=== PATIENT | male | born 1950 | race African-American/Black ===

== ENCOUNTER 2016-11-11 06:47 | Day surgery (SDC) | payer BC ==
[~2016-11-11 06:47] MED LIST: BUPIVACAINE HCL 0.75% INJ/PF (7.5 MG/1 ML) 10 ML SDV OS PRN; KETOROLAC TROMETHAMINE 0.45% 4 DROP/0.4 ML DROPERETTE OS PRN; LIDOCAINE 4% INJ/PF (40 MG/ML) 5 ML AMPUL OS PRN
[2016-11-11] MEDS: TETRACAINE HCL 0.5% OPH SOLN 0.6 ML DROPERETTE OS PRN ×2 (07:00→07:26)
[2016-11-11] MEDS: CYCLOPENTOLATE 0.2%/PHENYLEPHRINE 1% OPH SOLN 2 ML OS PRN ×3 (07:01→07:25)
[2016-11-11] MEDS: TROPICAMIDE 1% OPH SOLN 3 ML OS PRN ×3 (07:02→07:25)
[2016-11-11] MEDS: BESIFLOXACIN HCL 0.6% OPH SUSP 5 ML BOTTLE OS PRN ×3 (07:04→08:17)
[2016-11-11] MEDS ORDERED: CHONDR SU A NA/HYALUR INTRAOC KIT (SURGICARE) ONE (07:12)
[2016-11-11] MEDS ORDERED: PHENYLEPHRINE/KETOROLAC 1%-0.3% 4 ML VIAL ONE (07:12)
[2016-11-11] MEDS ORDERED: LIDOCAINE 1% INJ-PF (10 MG/ML) 30 ML SDV ONE (07:12)
[2016-11-11] MEDS ORDERED: FENTANYL CITRATE INJ/PF 100 MCG/2 ML AMPUL ONE (07:32)
[2016-11-11] MEDS ORDERED: MIDAZOLAM 2 MG/2 ML INJ ONE (07:32)
--- NOTE | 2016-11-11 08:38 | [facility] OPERATIVE REPORT E ---
[facility] Operative Report NAME: YVONNE FU AGE: 66Y DATE OF SURGERY: 11/11/2016 ROOM: PREOPERATIVE DIAGNOSIS: CATARACT, LEFT EYE. POSTOPERATIVE DIAGNOSIS: CATARACT, LEFT EYE. PROCEDURE PERFORMED: Phacoemulsification with posterior chamber, intraocular lens, left eye. SURGEON: BABAR VELAZQUEZ M.D. ANESTHESIA: Topical with MAC. INDICATIONS FOR SURGERY: Difficulty reading small print and words on TV. Glare with driving. Best corrected visual acuity: 20/50. DESCRIPTION OF PROCEDURE: The patient was brought to the operating room and placed on the operative table. Following tetracaine drops, topical anesthesia was administered. This consisted of instrument wipe pledgets soaked in a solution of 4% Xylocaine mixed with 0.75% Marcaine in a 1:2 ratio. A 2 x 1 cm pledget was placed in the superior fornix. A 1 x 1 cm pledget was placed in the inferior fornix. The eye was patched shut for 5 minutes. The patch was removed. The eye was sterilely prepped and draped in the usual manner. Lid speculum was placed in the eye. The pledgets were removed, 4-0 black silk sutures were placed around the superior and the inferior rectus muscles to be used as traction. A conjunctival peritomy was made at the 10 o'clock position. Hemostasis was obtained with bipolar cautery. A posterior limbal groove was created using a crescent knife and dissected anteriorly towards the cornea. A sharp point blade was used to create a paracentesis site at the 2 o'clock position. A 2.4 mm keratome was used to enter the anterior chamber through the groove. Viscoelastic was injected into the anterior chamber. An anterior capsulotomy was performed using Utrata forceps in a capsulorrhexis fashion. Hydrodissection and hydrodelineation were performed. Phacoemulsification was performed in [id number] technique. A total of 2.35 CDE total phaco time was used. Following this, the I/A unit was used to remove residual cortex. Viscoelastic was injected into the capsular bag. Intraocular lens Model [id number], 21.5 diopter, serial number [id number] was placed in the capsular bag. The I/A unit was used to removed residual viscoelastic. The wound was seen to be watertight under high and low pressure, and no sutures were placed. The intraocular lens was well centered. The pressure was adjusted in the eye to normal pressure. The 4-0 black silk sutures and lid speculum were removed. The eye was shielded after Besivance drops were placed. The patient tolerated the procedure well and was sent to the recovery room in good condition. DICTATING PHYSICIAN: BABAR VELAZQUEZ M.D. [id number] PHY#: [id number] ID: [id number] JOB#: [id number] ACCT: [id number] cc:BABAR VELAZQUEZ M.D. >
--- NOTE | 2016-11-11 08:38 | [facility] DISCHARGE SUMMARY E ---
[facility] Discharge Summary NAME: YVONNE FU AGE: 66Y ADMITTED: 11/11/2016 DISCHARGED: 11/11/2016 PREOPERATIVE DIAGNOSIS: CATARACT, LEFT EYE. POSTOPERATIVE DIAGNOSIS: CATARACT, LEFT EYE. HOSPITAL COURSE: Patient is a 66-year-old gentleman who underwent uneventful cataract extraction with intraocular lens implant, left eye, on 11/11/2016. DISPOSITION: He will be discharged to home. He was instructed to resume preoperative medications; take Tylenol as needed for discomfort; to keep his eye shielded; to use Besivance, Durezol, and Ilevro at 3:00 p.m. and 8:00 p.m.; and to follow up in my office in 1 day. DICTATING PHYSICIAN: BABAR VELAZQUEZ M.D. [id number] PHY#: [id number] ID: [id number] JOB#: [id number] ACCT: [id number] cc:BABAR VELAZQUEZ M.D. >
== END 2016-11-11 09:01 | disposition home or self-care (01) ==
LOC: SC 06:47
PROVIDERS: ATTEND Ophthalmology
PROC: 08RK3JZ Replacement of Left Lens with Synthetic Substitute, Percutaneous Approach (ICD-10-PCS; principal; 2016-11-11 08:00)
DX: H25.813 Combined forms of age-related cataract, bilateral (principal); E11.9 Type 2 diabetes mellitus without complications; I10 Essential (primary) hypertension; E78.00 Pure hypercholesterolemia, unspecified; Z79.899 Other long term (current) drug therapy; Z79.84 Long term (current) use of oral hypoglycemic drugs
CPT/HCPCS: 82962; 66984; V2632; J2250; J3490 ×4; J3010; C9447; 142

== ENCOUNTER 2016-12-02 07:35 | Day surgery (SDC) | payer BC ==
[~2016-12-02 07:35] MED LIST changes: -BUPIVACAINE HCL 0.75% INJ/PF (7.5 MG/1 ML) 10 ML SDV OS PRN; +KETOROLAC TROMETHAMINE 0.45% 4 DROP/0.4 ML DROPERETTE OD PRN; -KETOROLAC TROMETHAMINE 0.45% 4 DROP/0.4 ML DROPERETTE OS PRN; -LIDOCAINE 4% INJ/PF (40 MG/ML) 5 ML AMPUL OS PRN
[2016-12-02] MEDS: TROPICAMIDE 1% OPH SOLN 3 ML OD PRN ×3 (08:01→08:29)
[2016-12-02] MEDS: CYCLOPENTOLATE 0.2%/PHENYLEPHRINE 1% OPH SOLN 2 ML OD PRN ×3 (08:01→08:29)
[2016-12-02] MEDS: BESIFLOXACIN HCL 0.6% OPH SUSP 5 ML BOTTLE OD PRN ×4 (08:02→09:21)
[2016-12-02] MEDS: TETRACAINE HCL 0.5% OPH SOLN 0.6 ML DROPERETTE OD PRN ×2 (08:03→08:30)
[2016-12-02] MEDS ORDERED: MIDAZOLAM 2 MG/2 ML INJ ONE (08:36)
[2016-12-02] MEDS ORDERED: FENTANYL CITRATE INJ/PF 100 MCG/2 ML AMPUL ONE (08:37)
[2016-12-02] MEDS: LIDOCAINE 4% INJ/PF (40 MG/ML) 5 ML AMPUL OD PRN ×2 (08:59)
[2016-12-02] MEDS: BUPIVACAINE HCL 0.75% INJ/PF (7.5 MG/1 ML) 10 ML SDV OD PRN ×2 (08:59)
[2016-12-02] MEDS: PHENYLEPHRINE/KETOROLAC 1%-0.3% 4 ML VIAL ONE ×2 (09:08)
[2016-12-02] MEDS: LIDOCAINE 1% INJ-PF (10 MG/ML) 30 ML SDV ONE ×2 (09:08)
[2016-12-02] MEDS: CHONDR SU A NA/HYALUR INTRAOC KIT (SURGICARE) ONE ×2 (09:08)
--- NOTE | 2016-12-02 09:38 | [facility] OPERATIVE REPORT E ---
[facility] Operative Report NAME: YVONNE FU AGE: 66Y DATE OF SURGERY: 12/02/2016 ROOM: PREOPERATIVE DIAGNOSIS: CATARACT, RIGHT EYE. POSTOPERATIVE DIAGNOSIS: CATARACT, RIGHT EYE. PROCEDURE; Phacoemulsification with posterior chamber intraocular lens, right eye. SURGEON: BABAR VELAZQUEZ MD ANESTHESIA: Topical with MAC plus intraocular lidocaine. PROCEDURE: The patient was brought to the operating room and placed on the operative table. Following tetracaine drops, topical anesthesia was administered. This consisted of instrument wipe pledgets soaked in a solution of 4% Xylocaine mixed with 0.75% Marcaine in a 1:2 ratio. A 2 x 1 cm pledget was placed in the superior fornix. A 1 x 1 cm pledget was placed in the inferior fornix. The eye was patched shut for 5 minutes. The patch was removed. The eye was sterilely prepped and draped in the usual manner. Lid speculum was placed in the eye. The pledgets were removed. Then 4-0 black silk sutures were placed around the superior and the inferior rectus muscles to be used as traction. A conjunctival peritomy was made at the 10 o'clock position. Hemostasis was attained with bipolar cautery. A posterior limbal groove was created using a crescent knife and dissected anteriorly towards the cornea. A sharp point blade was used to create a paracentesis site at the 2 o'clock position. A 2.4 mm keratome was used to enter the anterior chamber through the groove. Viscoelastic was injected into the anterior chamber. An anterior capsulotomy was performed using Utrata forceps in a capsulorrhexis fashion. Hydrodissection and hydrodelineation were performed. Phacoemulsification was performed in [id number] technique. A total of 29 seconds phaco time was used. Following this, the I/A unit was used to remove residual cortex. Viscoelastic was injected into the capsular bag. Intraocular lens model SN60WF, 21.0 diopters, serial number [id number] was placed in the capsular bag. The I/A unit was used to remove residual viscoelastic. The wound was seen to be watertight under high and low pressure, and no sutures were placed. The intraocular lens was well centered. The pressure was adjusted in the eye to normal pressure. The 4-0 black silk sutures and lid speculum were removed. The eye was shielded after Besivance drops were placed. The patient tolerated the procedure well and was sent to the recovery room in good condition. DICTATING PHYSICIAN: BABAR VELAZQUEZ M.D. [id number] PHY#: [id number] ID: [id number] JOB#: [id number] ACCT: [id number] cc:BABAR VELAZQUEZ M.D. >
--- NOTE | 2016-12-02 09:39 | [facility] DISCHARGE SUMMARY E ---
[facility] Discharge Summary NAME: YVONNE FU AGE: 66Y ADMITTED: 12/02/2016 DISCHARGED: 12/02/2016 HISTORY: The patient is a 66-year-old gentleman who underwent uneventful cataract extraction with intraocular lens implant of the right eye on 12/02/2016. DISPOSITION: He will be discharged to home. DISCHARGE INSTRUCTIONS: He is instructed to resume preoperative medications, take Tylenol as needed for discomfort, to keep his eye shielded. To use Besivance, Durezol, and Ilevro at 3 p.m. and 8 p.m. Follow up in my office in 1 day. DICTATING PHYSICIAN: BABAR VELAZQUEZ M.D. [id number] PHY#: [id number] ID: [id number] JOB#: [id number] ACCT: [id number] cc:BABAR VELAZQUEZ M.D. >
== END 2016-12-02 10:02 | disposition home or self-care (01) ==
LOC: SC 07:35
PROVIDERS: ATTEND Ophthalmology
PROC: 08RJ3JZ Replacement of Right Lens with Synthetic Substitute, Percutaneous Approach (ICD-10-PCS; principal; 2016-12-02 09:00)
DX: H25.811 Combined forms of age-related cataract, right eye (principal); Z96.1 Presence of intraocular lens; E11.9 Type 2 diabetes mellitus without complications; I10 Essential (primary) hypertension; Z79.84 Long term (current) use of oral hypoglycemic drugs
CPT/HCPCS: 82962; 66984; V2632; J2250; J3490 ×4; J3010; C9447; 142

== ENCOUNTER 2019-06-15 11:06 | Inpatient (IN) | payer BC, MEDICARE ==
--- NOTE | 2019-06-15 12:24 | RADIOLOGY REPORT (SQ) ---
EXAM DESCRIPTION: CHEST 2 VIEWS COMPLETED DATE/TIME: 06/15/2019 12:14 pm REASON FOR STUDY: unexplained tachycardia COMPARISON: 05/10/2010 EXAM PARAMETERS: NUMBER OF VIEWS: two views TECHNIQUE: Digital Frontal and Lateral radiographic views of the chest acquired. RADIATION DOSE: NA LIMITATIONS: none FINDINGS: LUNGS AND PLEURA: No opacities, masses or pneumothorax. No pleural effusion. MEDIASTINUM AND HILAR STRUCTURES: No masses or contour abnormalities. HEART AND VASCULAR STRUCTURES: Heart normal size. No evidence for failure. BONES: No acute findings. HARDWARE: None in the chest. OTHER: No other significant finding. IMPRESSION: NO ACUTE RADIOGRAPHIC FINDING IN THE CHEST. TECHNICAL DOCUMENTATION: JOB ID: [id number] [employer]- All Rights Reserved Reading location - IP/workstation name: [email or web address]
[2019-06-15] MEDS: NORMAL SALINE 1000 ML 1,000 ML IV PRN ×2 (12:52→21:26)
--- NOTE | 2019-06-15 13:03 | EKG REPORT ---
SEVERITY:- ABNORMAL ECG - ATRIAL FLUTTER WTH RVR NONSPECIFIC INTRAVENTRICULAR CONDUCTION DELAY PROBABLE LVH WITH SECONDARY REPOL ABNRM : Confirmed by: Louis Salter MD 15-Jun-2019 13:03:18
[2019-06-15 13:08] LABS: HEMATOCRIT 44.9 % (37.9-51.0); HEMOGLOBIN 14.9 g/dL (13.5-17.0); MEAN CORPUSCULAR HEMOGLOBIN 30.3 pg (27.0-33.4); MEAN CORPUSCULAR HGB CONC 33.2 g/dL (32.0-36.0); MEAN CORPUSCULAR VOLUME 91 fl (80-97); RED BLOOD COUNT 4.92 10^6/uL (4.35-5.55); RED CELL DISTRIBUTION WIDTH 14.7 % (11.5-14.0); WHITE BLOOD COUNT 4.5 10^3/uL (4.0-10.5)
[2019-06-15 13:29] LABS: ALBUMIN 4.9 g/dL (3.5-5.0); ALKALINE PHOSPHATASE 96 U/L (38-126); ANION GAP 14 (5-19); ASPARTATE AMINO TRANSFERASE 256 U/L (17-59); BILIRUBIN,DIRECT 0.2 mg/dL (0.0-0.4); BILIRUBIN,TOTAL 1.6 mg/dL (0.2-1.3); BLOOD UREA NITROGEN 23 mg/dL (7-20); CALCIUM 9.2 mg/dL (8.4-10.2); CARBON DIOXIDE 28 mmol/L (22-30); CHLORIDE 90 mmol/L (98-107); GLUCOSE 117 mg/dL (75-110); POTASSIUM 4.3 mmol/L (3.6-5.0)
[2019-06-15 13:36] LABS: PLATELET COUNT 186 10^3/uL (150-450)
--- NOTE | 2019-06-15 14:36 | RADIOLOGY REPORT (SQ) ---
EXAM DESCRIPTION: CT ABD/PELVIS WITH IV ONLY COMPLETED DATE/TIME: 06/15/2019 2:16 pm REASON FOR STUDY: unexplained weight loss R63.4 ABNORMAL WEIGHT LOSS E11.9 TYPE 2 DIABETES MELLITU S WITHOUT COMPLICATIONS COMPARISON: None. TECHNIQUE: CT scan of the abdomen and pelvis performed using helical scanning technique with dynamic intravenous contrast injection. No oral contrast. Images reviewed with lung, soft tissue, and bone windows. Reconstructed coronal and sagittal MPR images reviewed. Delayed images for evaluation of the urinary system also acquired. All images stored on PACS. All CT scanners at this facility use dose modulation, iterative reconstruction, and/or weight based d osing when appropriate to reduce radiation dose to as low as reasonably achievable (ALARA). [facility]: Dose Right [facility]: CareDose [facility]: Dose Right [facility]: Teradose 4D [facility]: Brightergy CONTRAST TYPE AND DOSE: contrast/concentration: Isovue 300.00 mg/ml; Total Contrast Delivered: 70.0 ml; Total Saline Delivered: 71.0 ml RENAL FUNCTION: GFR > 60. RADIATION DOSE: CT Rad equipment meets quality standard of care and radiation dose reduction techniq ues were employed. CTDIvol: 5.0 - 5.8 mGy. DLP: 559 mGy-cm.. LIMITATIONS: None. FINDINGS: LOWER CHEST: No significant findings. No nodules or infiltrates. LIVER: Normal size. No masses. No dilated ducts. SPLEEN: Normal size. No focal lesions. PANCREAS: No masses. No significant calcifications. No adjacent inflammation or peripancreatic fluid collections. Pancreatic duct not dilated. GALLBLADDER: No identified stones by CT criteria. No inflammatory changes to suggest cholecystitis. ADRENAL GLANDS: No significant masses or asymmetry. RIGHT KIDNEY AND URETER: No solid masses. No significant calcifications. No hydronephrosis or hyd roureter. LEFT KIDNEY AND URETER: No solid masses. No significant calcifications. No hydronephrosis or hydr oureter. AORTA AND VESSELS: No aneurysm. No dissection. Renal arteries, SMA, celiac without stenosis. RETROPERITONEUM: No retroperitoneal adenopathy, hemorrhage or masses. BOWEL AND PERITONEAL CAVITY: No masses or inflammatory changes. No free fluid or peritoneal masses. APPENDIX: Normal. PELVIS: No mass. No free fluid. Mild thickening of the urinary bladder, likely due to chronic al ob struction and decompression. ABDOMINAL WALL: No masses. No hernias. BONES: No significant or acute findings. OTHER: No other significant finding. IMPRESSION: No CT findings of the abdomen or pelvis to explain weight loss. TECHNICAL DOCUMENTATION: JOB ID: [id number] Quality ID # [id number]: Final reports with documentation of one or more dose reduction techniques (e.g., Au tomated exposure control, adjustment of the mA and/or kV according to patient size, use of iterative reconstruction technique) 2010 [employer]- All Rights Reserved Reading location - IP/workstation name: [email or web address]
--- NOTE | 2019-06-15 17:14 | RADIOLOGY REPORT (SQ) ---
EXAM DESCRIPTION: NM LUNG VENT/PERF SCAN COMPLETED DATE/TIME: 06/15/2019 4:06 pm REASON FOR STUDY: SOB, TACHYCARDIA R63.4 ABNORMAL WEIGHT LOSS E11.9 TYPE 2 DIABETES MELLITUS WITHO UT COMPLICATIONS COMPARISON: None. RADIONUCLIDE AND DOSE: 5 millicuries TC-99m MAA Intravenous 30 millicuries TC-99m DTPA Inhaled aerosol TECHNIQUE: Eight views of the lungs acquired post ventilation of DTPA aerosol. Eight matching views of the lungs acquired following injection of MAA. LIMITATIONS: None. FINDINGS: VENTILATION: Symmetric and homogeneous distribution of DTPA aerosol during ventilatory pha se. No significant areas of photopenia. PERFUSION: Perfusion images with normal homogenous activity and no wedge-shaped or segmental defects. No ventilation-perfusion mismatches. OTHER: No other significant finding. IMPRESSION: NORMAL VENTILATION-PERFUSION LUNG SCAN. NEGATIVE FOR PULMONARY EMBOLI. TECHNICAL DOCUMENTATION: JOB ID: [id number] [employer]- All Rights Reserved Reading location - IP/workstation name: [email or web address]
--- NOTE | 2019-06-15 17:14 | PDOC H&P ---
History of Present Illness Admission Date/PCP: 06/15/19 11:06 WILLIAMS BENNETT MD History of Present Illness: YVONNE FU is a 69 year old male, Patient came to the office today with the for evaluation of malaise, abnormal posture. Patient's spouse stated that this morning patient did not look himself,he staggered,He was supposed to go to work this morning but the brought him to the office for evaluation. In the office he was found to have elevated pulse rate, he also was found to have lost weight, he has been losing weight progressively over time he was last seen in the office on June 01, 2019 at the time he had blood work done in the office, the SGOT was 59 SGPT was normal the pattern of liver enzyme abnormality is consistent with alcohol liver disease. Patient always tend to downplay his alcohol use but the always stated that he drinks alcohol regularly and heavily, the last time he was in the office he was referred to GI Dr. Morales, is scheduled for colonoscopy by june. He was admitted today for evaluation of unexplained tachycardia, unexplained weight loss, dehydration, shortness of breath. The blood work that was done today in the hospital demonstrated elevated SGOT much more than the SGOT that was done in the office on 2018.The CT scan of the abdomen and pelvis with IV contrast was negative for any acute pathology Past Medical History Cardiac Medical History: Reports: Hypertension - MEDICATED Endocrine Medical History: Reports: Diabetes Mellitus Type 2 Psychiatric Medical History: Reports: Alcohol Dependency Social History Smoking Status: Never Smoker Family History Family History: None Parental Family History Reviewed: Yes Children Family History Reviewed: Yes Sibling(s) Family History Reviewed.: Yes Medication/Allergy Home Medications: RX: Pioglitazone HCl 30 mg PO DAILY 11/04/16 RX: Pravastatin Sodium 80 mg PO DAILY 11/04/16 RX: Allopurinol [Zyloprim 100 mg Tablet] 100 mg PO DAILYP PRN 06/15/19 RX: Olmesartan/Hydrochlorothiazide [Olmesartan-Hctz 40-12.5 mg Tab] 1 each PO DAILY 06/15/19 RX: Apixaban [Eliquis 5 mg Tablet] 5 mg PO BID #60 tablet 06/20/19 RX: Clonidine HCl [Catapres 0.1 mg Tablet] 0.1 mg PO Q12 #60 tablet 06/20/19 RX: Metoprolol Tartrate [Lopressor 25 mg Tablet] 25 mg PO Q12 #60 tablet 12/03 Allergies/Adverse Reactions: droperidol Allergy (Verified 06/15/19 18:44) Review of Systems Eyes: ABSENT: visual disturbances Ears: ABSENT: hearing changes Cardiovascular: ABSENT: chest pain, dyspnea on exertion, edema, orthropnea, palpitations Respiratory: ABSENT: cough, hemoptysis Gastrointestinal: ABSENT: abdominal pain, constipation, diarrhea, hematemesis, hematochezia, nausea, vomiting Genitourinary: ABSENT: dysuria, hematuria Musculoskeletal: ABSENT: joint swelling Integumentary: ABSENT: rash, wounds Neurological: ABSENT: abnormal gait, abnormal speech, confusion, dizziness, focal weakness, syncope Psychiatric: ABSENT: anxiety, depression, homidical ideation, suicidal ideation Endocrine: ABSENT: cold intolerance, heat intolerance, menstrual abnormalities, polydipsia, polyuria Hematologic/Lymphatic: ABSENT: easy bleeding, easy bruising, lymphadenopathy Physical Exam Vital Signs: Temp Pulse Resp BP Pulse Ox 98.4 F 150 H 16 117/85 98 06/15/19 15:24 06/15/19 15:24 06/15/19 15:24 06/15/19 15:24 06/15/19 15:24 Intake & Output 06/14/19 06/15/19 06/16/19 06:59 06:59 06:59 Intake Total 720 Output Total 360 Balance 360 Weight 84.8 kg General appearance: PRESENT: no acute distress, well-developed, well-nourished Head exam: PRESENT: atraumatic, normocephalic Eye exam: PRESENT: conjunctiva pink, EOMI, PERRLA. ABSENT: scleral icterus Ear exam: PRESENT: normal external ear exam Mouth exam: PRESENT: moist, tongue midline Neck exam: PRESENT: full ROM. ABSENT: carotid bruit, JVD, lymphadenopathy, thyromegaly Cardiovascular exam: PRESENT: RRR. ABSENT: diastolic murmur, rubs, systolic murmur Pulses: PRESENT: normal dorsalis pedis pul, +2 pedal pulses bilateral Vascular exam: PRESENT: normal capillary refill GI/Abdominal exam: PRESENT: normal bowel sounds, soft. ABSENT: distended, guarding, mass, organolmegaly, rebound, tenderness Rectal exam: PRESENT: deferred Neurological exam: PRESENT: alert, awake, oriented to person, oriented to place, oriented to time, oriented to situation, CN II-XII grossly intact. ABSENT: motor sensory deficit Psychiatric exam: PRESENT: appropriate affect, normal mood. ABSENT: homicidal ideation, suicidal ideation Skin exam: PRESENT: dry, intact, warm. ABSENT: cyanosis, rash Results Laboratory Results: 06/15/19 12:56 06/15/19 12:56 06/15/19 06/15/19 12:56 12:56 WBC 4.5 RBC 4.92 Hgb 14.9 Hct 44.9 MCV 91 MCH 30.3 MCHC 33.2 RDW 14.7 H Plt Count 186 Sodium 132.4 L Potassium 4.3 Chloride 90 L Carbon Dioxide 28 Anion Gap 14 BUN 23 H Creatinine 1.60 H Est GFR ( Amer) 52 L Glucose 117 H Calcium 9.2 Total Bilirubin 1.6 H AST 256 H Alkaline Phosphatase 96 Total Protein 9.0 H Albumin 4.9 Impressions: Abdomen/Pelvis CT 06/15/19 00:00 IMPRESSION: No CT findings of the abdomen or pelvis to explain weight loss. Chest X-Ray 06/15/19 00:00 IMPRESSION: NO ACUTE RADIOGRAPHIC FINDING IN THE CHEST. Assessment & Plan - Diagnosis (1) Narrow complex tachycardia Is this a current diagnosis for this admission?: Yes Plan: The differential diagnosis includes AV node reentrant tachycardia, atrial flutter, atrial fibrillation, Patient drinks alcohol, this is most likely atrial fibrillation, atrial fibrillation is associated with alcohol abuse (2) Alcoholic liver disease Is this a current diagnosis for this admission?: Yes (3) Dehydration Is this a current diagnosis for this admission?: Yes (4) Acute kidney injury Is this a current diagnosis for this admission?: Yes
[2019-06-15] MEDS ORDERED: LORAZEPAM INJ 2 MG/1 ML VIAL ONE (17:26)
[2019-06-15] MEDS: THIAMINE HCL 100 MG in NORMAL SALINE 50 ML IV SCH (17:36)
[2019-06-15] MEDS: LORAZEPAM INJ 2 MG/1 ML VIAL IV SCH (17:37)
[2019-06-15] MEDS ORDERED: CLONIDINE HCL 0.2 MG TABLET ONE (17:59)
[2019-06-15] MEDS: CLONIDINE HCL 0.1 MG TABLET PO SCH ×2 (18:05→22:51)
[2019-06-15] MEDS ORDERED: NORMAL SALINE 500 ML IV ONE (20:45)
[2019-06-15] MEDS ORDERED: GLUCAGON,HUMAN RECOMB 1 MG INJ IM PRN (23:30)
[2019-06-15] MEDS ORDERED: DEXTROSE 40% GEL 15 GM TUBE PO PRN (23:30)
[2019-06-15] MEDS ORDERED: DEXTROSE 40% GEL 15 GM TUBE X 2 PO PRN (23:30)
[2019-06-15] MEDS ORDERED: DEXTROSE 50%-WATER SYRINGE 12.5 GM/25 ML DOSE IV PRN (23:30)
[2019-06-15] MEDS ORDERED: DEXTROSE 50%-WATER SYRINGE 25 GM/50 ML DOSE IV PRN (23:30)
[2019-06-15] MEDS ORDERED: INSULIN REG, HUMAN 100 UNIT/ML 3 ML VIAL (PYX) SUBCUT ONE (23:45)
[2019-06-16] MEDS: NORMAL SALINE 1000 ML 1,000 ML IV PRN (05:37)
[2019-06-16] MEDS: LORAZEPAM INJ 2 MG/1 ML VIAL IV SCH ×2 (05:50→17:26)
[2019-06-16] MEDS: CLONIDINE HCL 0.1 MG TABLET PO SCH ×3 (05:50→21:11)
--- NOTE | 2019-06-16 07:23 | EKG REPORT ---
SEVERITY:- ABNORMAL ECG - ATRIAL FLUTTER, A-RATE 300 CONSIDER LEFT VENTRICULAR HYPERTROPHY : Confirmed by: Louis Salter MD 16-Jun-2019 07:22:46
[2019-06-16] MEDS ORDERED: AMIODARONE HCL 150 MG in DEXTROSE 5%-WATER 100 ML IV ONE (09:00)
[2019-06-16 09:48] LABS: ABSOLUTE EOSINOPHILS # (AUTO) 0.3 10^3/uL (0.0-0.6); ABSOLUTE LYMPHOCYTES (AUTO) 1.3 10^3/uL (0.5-4.7); ABSOLUTE MONOCYTES (AUTO) 0.6 10^3/uL (0.1-1.4); ABSOLUTE NEUT (AUTO) 2.5 10^3/uL (1.7-8.2); BASOPHILS % (AUTO) 0.5 % (0-2); EOSINOPHILS % (AUTO) 5.7 % (0-6); HEMATOCRIT 40.4 % (37.9-51.0); HEMOGLOBIN 13.7 g/dL (13.5-17.0); LYMPHOCYTES % (AUTO) 28.6 % (13-45); MEAN CORPUSCULAR HEMOGLOBIN 31.2 pg (27.0-33.4); MEAN CORPUSCULAR HGB CONC 33.9 g/dL (32.0-36.0); MEAN CORPUSCULAR VOLUME 92 fl (80-97); MONOCYTES % (AUTO) 12.2 % (3-13); PLATELET COUNT 160 10^3/uL (150-450); RED BLOOD COUNT 4.39 10^6/uL (4.35-5.55); RED CELL DISTRIBUTION WIDTH 14.5 % (11.5-14.0); TOTAL CELLS COUNTED % (AUTO) 100 %; WHITE BLOOD COUNT 4.7 10^3/uL (4.0-10.5)
[2019-06-16 10:18] LABS: ALBUMIN 3.4 g/dL (3.5-5.0); ALKALINE PHOSPHATASE 96 U/L (38-126); ANION GAP 10 (5-19); ASPARTATE AMINO TRANSFERASE 194 U/L (17-59); BILIRUBIN,DIRECT 0.2 mg/dL (0.0-0.4); BILIRUBIN,TOTAL 0.8 mg/dL (0.2-1.3); BLOOD UREA NITROGEN 31 mg/dL (7-20); CALCIUM 8.3 mg/dL (8.4-10.2); CARBON DIOXIDE 26 mmol/L (22-30); CHLORIDE 98 mmol/L (98-107); CREATINE KINASE 174 U/L (55-170); GLUCOSE 151 mg/dL (75-110); POTASSIUM 3.7 mmol/L (3.6-5.0); TOTAL PROTEIN 6.6 g/dL (6.3-8.2)
[2019-06-16 10:23] LABS: ALCOHOL < 10 mg/dL (NONE DETECTED); CREATINE KINASE MB 1.48 ng/mL (<4.55); TROPONIN I 0.083 ng/mL
[2019-06-16 10:26] LABS: FREE T4 (FREE THYROXINE) 0.91 ng/dL (0.78-2.19)
[2019-06-16 10:40] LABS: THYROID STIMULATING HORMONE 2.34 uIU/mL (0.47-4.68)
[2019-06-16] MEDS: DEXTROSE 5%-WATER 500 ML with AMIODARONE HCL 900 MG IV PRN ×4 (10:45→19:10)
[2019-06-16] MEDS: INSULIN REG, HUMAN 100 UNIT/ML 3 ML VIAL (PYX) SUBCUT SCH ×3 (13:37→21:42)
[2019-06-16] MEDS: THIAMINE HCL 100 MG in NORMAL SALINE 50 ML IV SCH (17:29)
[2019-06-16 17:40] LABS: CREATINE KINASE MB 1.16 ng/mL (<4.55)
[2019-06-16 18:14] LABS: TROPONIN I 0.066 ng/mL
--- NOTE | 2019-06-16 20:41 | PDOC PROGRESS REPORT ---
Subjective Progress Note for:: 06/16/19 Subjective:: Patient was seen by the bedside,He was admitted yesterday, found to have atrial flutter with hemodynamic instability, started on amiodarone drip. Patient will need anticoagulant, 2D echo ordered, consultation from cardiology Reason For Visit: UNEXPLAINED WEIGHT LOSS,UNEXPLAINED TACHYCARDIA Physical Exam Vital Signs: Temp Pulse Resp BP Pulse Ox 98.1 F 98 16 90/50 L 96 06/16/19 15:10 06/16/19 19:00 06/16/19 15:10 06/16/19 18:00 06/16/19 15:10 Intake & Output 06/15/19 06/16/19 06/17/19 06:59 06:59 06:59 Intake Total 2139 976 Output Total 360 Balance 1779 976 Weight 82.1 kg 82.1 kg General appearance: PRESENT: no acute distress Eye exam: PRESENT: PERRLA Respiratory exam: PRESENT: clear to auscultation dasia Cardiovascular exam: PRESENT: +S1, +S2 GI/Abdominal exam: PRESENT: soft Neurological exam: PRESENT: alert, CN II-XII grossly intact Results Laboratory Results: 06/16/19 08:59 06/16/19 08:59 06/16/19 06/16/19 06/16/19 08:59 08:59 08:59 WBC 4.7 RBC 4.39 Hgb 13.7 Hct 40.4 MCV 92 MCH 31.2 MCHC 33.9 RDW 14.5 H Plt Count 160 Seg Neutrophils % 53.0 Sodium 133.8 L Potassium 3.7 Chloride 98 Carbon Dioxide 26 Anion Gap 10 BUN 31 H Creatinine 1.68 H Est GFR ( Amer) 50 L Glucose 151 H Calcium 8.3 L Total Bilirubin 0.8 AST 194 H Alkaline Phosphatase 96 Total Protein 6.6 Albumin 3.4 L TSH 2.34 Free T4 0.91 06/16/19 06/16/19 06/16/19 08:59 08:59 16:45 Creatine Kinase 174 H 124 CK-MB (CK-2) 1.48 Troponin I 0.083 06/16/19 16:45 Creatine Kinase CK-MB (CK-2) 1.16 Troponin I 0.066 Impressions: Abdomen/Pelvis CT 06/15/19 00:00 IMPRESSION: No CT findings of the abdomen or pelvis to explain weight loss. Chest X-Ray 06/15/19 00:00 IMPRESSION: NO ACUTE RADIOGRAPHIC FINDING IN THE CHEST. Lung Scan-VQ NM 06/15/19 00:00 IMPRESSION: NORMAL VENTILATION-PERFUSION LUNG SCAN. NEGATIVE FOR PULMONARY EMBOLI. Assessment & Plan - Diagnosis (1) Atrial flutter Qualifiers: Atrial flutter type: unspecified Qualified Code(s): I48.92 - Unspecified atrial flutter Is this a current diagnosis for this admission?: Yes Plan: Start amiodarone (2) Narrow complex tachycardia Is this a current diagnosis for this admission?: Yes (3) Alcoholic liver disease Is this a current diagnosis for this admission?: Yes (4) Dehydration Is this a current diagnosis for this admission?: Yes (5) Acute kidney injury Is this a current diagnosis for this admission?: Yes Plan: Continue hydration (6) Hypotension Qualifiers: Hypotension type: unspecified hypotension type Qualified Code(s): I95.9 - Hypotension, unspecified Is this a current diagnosis for this admission?: Yes Plan: Patient is hemodynamically unstable, start amiodarone - Time Time Spent with patient: 35 or more minutes Level of Care: IMCU Medications reviewed and adjusted accordingly: Yes
[2019-06-17 01:52] LABS: CREATINE KINASE MB 1.32 ng/mL (<4.55); TROPONIN I 0.05 ng/mL
[2019-06-17] MEDS ORDERED: AMIODARONE HCL INJ 150 MG/3 ML VIAL IV ONE (04:50)
[2019-06-17] MEDS ORDERED: WATER IV PRN ×2 (05:03)
[2019-06-17] MEDS ORDERED: AMIODARONE HCL IV PRN ×2 (05:03)
[2019-06-17] MEDS ORDERED: DEXTROSE 5% IV PRN ×2 (05:03)
[2019-06-17] MEDS: LORAZEPAM INJ 2 MG/1 ML VIAL IV SCH ×2 (05:13→17:27)
[2019-06-17] MEDS: CLONIDINE HCL 0.1 MG TABLET PO SCH ×3 (05:14→21:20)
[2019-06-17 08:52] LABS: ABSOLUTE BASOPHILS # (AUTO) 0.1 10^3/uL (0.0-0.2); ABSOLUTE EOSINOPHILS # (AUTO) 0.7 10^3/uL (0.0-0.6); ABSOLUTE LYMPHOCYTES (AUTO) 1.4 10^3/uL (0.5-4.7); ABSOLUTE MONOCYTES (AUTO) 0.4 10^3/uL (0.1-1.4); ABSOLUTE NEUT (AUTO) 2.3 10^3/uL (1.7-8.2); BASOPHILS % (AUTO) 1.4 % (0-2); EOSINOPHILS % (AUTO) 13.9 % (0-6); HEMOGLOBIN 14.1 g/dL (13.5-17.0); LYMPHOCYTES % (AUTO) 28.2 % (13-45); MEAN CORPUSCULAR HGB CONC 33.6 g/dL (32.0-36.0); MEAN CORPUSCULAR VOLUME 92 fl (80-97); MONOCYTES % (AUTO) 8.6 % (3-13); PLATELET COUNT 146 10^3/uL (150-450); RED BLOOD COUNT 4.55 10^6/uL (4.35-5.55); RED CELL DISTRIBUTION WIDTH 14.4 % (11.5-14.0); SEGMENTED NEUTROPHILS % (AUTO) 47.9 % (42-78); TOTAL CELLS COUNTED % (AUTO) 100 %; WHITE BLOOD COUNT 4.8 10^3/uL (4.0-10.5)
[2019-06-17 09:26] LABS: ALBUMIN 3.9 g/dL (3.5-5.0); ALKALINE PHOSPHATASE 71 U/L (38-126); ANION GAP 8 (5-19); ASPARTATE AMINO TRANSFERASE 173 U/L (17-59); BILIRUBIN,DIRECT 0.2 mg/dL (0.0-0.4); BILIRUBIN,TOTAL 1.1 mg/dL (0.2-1.3); BLOOD UREA NITROGEN 20 mg/dL (7-20); CARBON DIOXIDE 26 mmol/L (22-30); CHLORIDE 100 mmol/L (98-107); GLUCOSE 123 mg/dL (75-110); POTASSIUM 3.6 mmol/L (3.6-5.0); TOTAL PROTEIN 7.4 g/dL (6.3-8.2)
[2019-06-17] MEDS: INSULIN REG, HUMAN 100 UNIT/ML 3 ML VIAL (PYX) SUBCUT SCH ×3 (12:58→21:19)
[2019-06-17] MEDS: APIXABAN 5 MG TABLET PO SCH (17:27)
[2019-06-17] MEDS: THIAMINE HCL 100 MG in NORMAL SALINE 50 ML IV SCH (17:27)
[2019-06-17] MEDS: METOPROLOL TARTRATE 25 MG TABLET PO SCH ×2 (17:27→21:19)
[2019-06-17] MEDS: NORMAL SALINE 1000 ML 1,000 ML IV PRN (17:27)
--- NOTE | 2019-06-17 18:12 | EKG REPORT ---
SEVERITY:- ABNORMAL ECG - ATRIAL FLUTTER, A-RATE 288 PROBABLE LVH WITH SECONDARY REPOL ABNRM : Confirmed by: Louis Salter MD 17-Jun-2019 18:12:10
--- NOTE | 2019-06-17 20:47 | PDOC CONSULTATION ---
Consultation-Blank Consultation: CARDIOLOGY CONSULTATION BY Dr. Damaris Quintana on 06/17/2019. Patient seen at 2 PM. 60 minutes spent on this patient more than 50% of time spent on direct patient care. REASON FOR CONSULTATION: Patient with atrial flutter which appears to be of recent onset. CONSULT REQUESTING PHYSICIAN: Dr. Fernando. HISTORY PRESENT ILLNESS: The patient is a 69-year-old Afro-O[place]i male who states that last Thursday after he came back from work he did not feel well. He stated that he had some pain in the left shoulder and left side of the neck which clearly he stated that increased with movements of the neck or the shoulder. He also noticed to have rapid beating of his heart and felt slightly weak and slightly short of breath with exertion. He is shoulder and neck pain back to 10 range over the few days and has had intermittent episodes of rapid beating of the heart, which slowed down with rest. There was no clear-cut anginal symptoms. These continued off and on in spite of his continue to go to work. He saw Dr. Fernando yesterday with the noticing that the patient was staggering and also felt weak and not being himself. In Dr. Fernando's office he was found to have an elevated heart rate. As per the notes and as per the the patient does seem to state that the patient does drink quite heavily although the patient states he has not a heavy drinker. As per Dr. Fernando his liver functions have been abnormal as mentioned in the history of present illness. In the hospital the patient was found to have atrial flutter with rapid ventricular response. He was treated initially with Cardizem and amiodarone continues to be in atrial fibrillation but with much much better ventricular response of 95 bpm. At present the patient has no chest pain or discomfort. There is no shortness of breath there is no PND orthopnea. There is no TIA CVA symptoms. The patient has no contraindications for chronic anticoagulation except that he is a heavy user of alcohol. Which the patient states that he will quit. There is no history of DTs on the patient. 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 He has a history of diabetes mellitus type 2 [id number], and history of hypertension which he claims to be well controlled. There is no history of TIA CVA. There is no prior history of atrial flutter or atrial fibrillation. There is no PND orthopnea syncope. There is no prior history of congestive heart failure. There is no prior history of myocardial infarction or coronary artery disease. Current Medications Generic Name Dose Route Start Last Admin Trade Name Freq PRN Reason Stop Dose Admin Apixaban 5 mg 06/17/19 18:00 06/17/19 17:27 Eliquis 5 Mg Tablet PO 07/17/19 17:59 5 mg BID KEYONNA Administration Clonidine 0.1 mg 06/17/19 22:00 Catapres 0.1 Mg Tablet PO 07/17/19 21:59 Q12 KEYONNA Dextrose 12.5 gm 06/15/19 23:30 Dextrose Inj 50% Syringe (25 Gm/50 Ml) IV 07/15/19 23:29 PRN PRN FOR BG 50-69 IN ALERT PATIENT Protocol Dextrose 25 gm 06/15/19 23:30 Dextrose Inj 50% Syringe (25 Gm/50 Ml) IV 07/15/19 23:29 PRN PRN PER PROTOCOL Protocol Glucagon 1 mg 06/15/19 23:30 Glucagen Inj 1 Mg Vial IM 07/15/19 23:29 PRN PRN EVALUATE FOR BG < 70 Protocol Glucose 15 gm 06/15/19 23:30 Glutose 40% Gel 15 Gm Tube PO 07/15/19 23:29 PRN PRN FOR BG 50-69 IN ALERT PATIENT Protocol Glucose 30 gm 06/15/19 23:30 Glutose 40% Gel 15 Gm Tube PO 07/15/19 23:29 PRN PRN FOR BG < 50 IN ALERT PATIENT Protocol Sodium Chloride 1,000 mls @ 100 mls/hr 06/15/19 11:52 06/16/19 05:37 Nacl 0.9% 1000 Ml Iv Soln IV 07/15/19 11:51 100 mls/hr CONTINUOUS PRN Administration THIS MED IS NOT "PRN" Thiamine HCl 100 mg/ Sodium 51 mls @ 102 mls/hr 06/15/19 18:00 06/17/19 17:27 Chloride IV 07/15/19 17:59 102 mls/hr QPM KEYONNA 102 mls/hr Administration Sodium Chloride 1,000 mls @ 100 mls/hr 06/17/19 14:43 06/17/19 17:27 Nacl 0.9% 1000 Ml Iv Soln IV 07/17/19 14:42 100 mls/hr CONTINUOUS PRN Administration THIS MED IS NOT "PRN" Insulin Human Regular 0 - 12 unit 06/16/19 08:00 06/17/19 17:27 Humulin R (Pyxis) Insulin 100 Unit/Ml 3ml SUBCUT 06/25/19 07:59 Not Given ACHS KEYONNA Protocol Lorazepam 2 mg 06/15/19 18:00 06/17/19 17:27 Ativan Inj 2 Mg/1 Ml Vial IV 06/22/19 17:59 2 mg Q12A KEYONNA Administration Metoprolol Tartrate 25 mg 06/17/19 15:00 06/17/19 17:27 Lopressor 25 Mg Tablet PO 07/17/19 14:59 25 mg Q12 KEYONNA Administration Discontinued Medications Generic Name Dose Route Start Last Admin Trade Name Freq PRN Reason Stop Dose Admin Amiodarone HCl Confirm 06/17/19 04:50 06/17/19 05:13 Cordarone Inj 150 Mg/3 Ml Vial Administered 06/17/19 04:51 Not Given Dose 150 mg IV .STK-MED ONE Clonidine 0.1 mg 06/15/19 18:00 06/17/19 07:12 Catapres 0.1 Mg Tablet PO 07/15/19 17:59 0.1 mg Q8 KEYONNA Administration Clonidine Confirm 06/15/19 17:59 06/15/19 18:05 Catapres 0.2 Mg Tablet Administered 06/15/19 18:00 0.2 mg Dose Administration 0.2 mg .ROUTE .STK-MED ONE Sodium Chloride 500 mls @ 0 mls/hr 06/15/19 20:45 06/15/19 20:05 Nacl 0.9% 500 Ml Iv Soln IV 06/15/19 20:46 Not Given BOLUS ONE Wide Open Amiodarone HCl 150 mg/ 100 mls @ 600 mls/hr 06/16/19 09:00 06/16/19 09:49 Dextrose IV 06/16/19 09:09 600 mls/hr NOW ONE Administration Protocol Amiodarone HCl 900 mg/ 500 mls @ 0 mls/hr 06/16/19 09:00 06/17/19 05:09 Dextrose IV 06/19/19 08:59 0 mls/hr CONTINUOUS PRN 0 mls/hr THIS MED IS NOT "PRN" Titration Protocol Per Protocol Amiodarone HCl 450 mg/ 259 mls @ 0 mls/hr 06/17/19 05:03 06/17/19 05:13 Dextrose IV 06/17/19 10:00 16.67 mls/hr CONTINUOUS PRN 16.67 mls/hr THIS MED IS NOT "PRN" Administration Protocol Per Protocol Insulin Human Regular 0 - 12 unit 06/15/19 23:45 06/16/19 01:32 Humulin R (Pyxis) Insulin 100 Unit/Ml 3ml SUBCUT 06/15/19 23:46 2 unit NOW ONE Administration Protocol Lorazepam Confirm 06/15/19 17:26 06/15/19 17:36 Ativan Inj 2 Mg/1 Ml Vial Administered 06/15/19 17:27 2 mg Dose Administration 2 mg .ROUTE .STK-MED ONE Past Medical History Cardiac Medical History: Reports: Hypertension - MEDICATED Endocrine Medical History: Reports: Diabetes Mellitus Type 2 Psychiatric Medical History: Reports: Alcohol Dependency Social History Smoking Status: Never Smoker Although a accurate intake of the patient's alcohol is not obtainable seems to be the patient uses alcohol quite a bit. There is no history of street drug abuse. Family History Family History: History of CAD and congestive heart failure. Medication/Allergy Home Medications: Pioglitazone HCl 30 mg PO DAILY 11/04/16 Pravastatin Sodium 80 mg PO DAILY 11/04/16 Allopurinol [Zyloprim 100 mg Tablet] 100 mg PO DAILYP PRN 06/15/19 Olmesartan/Hydrochlorothiazide [Olmesartan-Hctz 40-12.5 mg Tab] 1 each PO DAILY 06/15/19 Allergies/Adverse Reactions: droperidol Allergy (Verified 06/15/19 18:44) Review of Systems Eyes: ABSENT: visual disturbances Ears: ABSENT: hearing changes Cardiovascular: ABSENT: chest pain, dyspnea on exertion, edema, orthropnea, palpitations Respiratory: ABSENT: cough, hemoptysis Gastrointestinal: ABSENT: abdominal pain, constipation, diarrhea, hematemesis, hematochezia, nausea, vomiting Genitourinary: ABSENT: dysuria, hematuria Musculoskeletal: ABSENT: joint swelling Integumentary: ABSENT: rash, wounds Neurological: ABSENT: abnormal gait, abnormal speech, confusion, dizziness, focal weakness, syncope Psychiatric: ABSENT: anxiety, depression, homidical ideation, suicidal ideation Endocrine: ABSENT: cold intolerance, heat intolerance, menstrual abnormalities, polydipsia, polyuria Hematologic/Lymphatic: ABSENT: easy bleeding, easy bruising, lymphadenopathy. RESUSCITATION STATUS: The patient is a full code. His is his surrogate healthcare decision maker. PHYSICAL EXAMINATION: The patient is well-built and well-nourished. In no acute distress. Selected Entries 06/17/19 15:49 Temperature 98.2 F Temperature Oral Source Pulse Rate 71 Respiratory 16 Rate Blood Pressure 111/73 Blood Pressure 85 Mean BP Location Left Arm BP Position Supine O2 Sat by Pulse 100 Oximetry Oxygen Delivery Room Air Method HEAD: Atraumatic, normocephalic. EYES: Pupils equal round and reactive to light, extraocular movements intact, sclera anicteric, conjunctiva are normal. ENT: TMs normal, nares patent, oropharynx clear without exudates. Moist mucous membranes. NECK: Normal range of motion, supple without lymphadenopathy or JVD. Carotids are equal there is no bruits. There is no thyromegaly. There is no accessory muscles of respiration in use. Trachea central LUNGS: Breath sounds clear to auscultation bilaterally and equal. No wheezes rales or rhonchi. On palpation there is no chest wall tenderness. HEART: S1-S2 is heard. S1 is of variable intensity. There is no S3 gallop. There is no S4 gallop. There is systolic murmur left sternal border and apex without radiation. There is no rub.. ABDOMEN: Soft, nontender, normoactive bowel sounds. There is no hepatosplenic megaly no guarding, no rebound. No masses appreciated. EXTREMITIES: Normal range of motion, no pitting or edema. No clubbing or cyanosis. Femorals are well felt. There is no femoral bruits. Leg pulses are well felt. There is no DVT or cellulitis. There is no calf tenderness NEUROLOGICAL: Cranial nerves II through XII grossly intact. Normal speech, normal gait. The patient is awake alert oriented x3 with no focal deficits. PSYCH: Normal mood, normal affect. The patient judgment and insight are intact SKIN: Warm, Dry, normal turgor, no rashes or lesions noted. There is no petechia or ecchymosis. Labs- Entire Visit 06/15/19 06/15/19 06/15/19 12:26 12:56 12:56 WBC 4.5 RBC 4.92 Hgb 14.9 Hct 44.9 MCV 91 MCH 30.3 MCHC 33.2 RDW 14.7 H Plt Count 186 Lymph % (Auto) Vernon % (Auto) Eos % (Auto) Baso % (Auto) Absolute Neuts (auto) Absolute Lymphs (auto) Absolute Monos (auto) Absolute Eos (auto) Absolute Basos (auto) Seg Neutrophils % D-Dimer Sodium Potassium Chloride Carbon Dioxide Anion Gap BUN Creatinine Est GFR ( Amer) Est GFR (MDRD) Non-Af Glucose POC Glucose Hemoglobin A1c % 5.8 Calcium Total Bilirubin Direct Bilirubin Neonat Total Bilirubin Neonat Direct Bilirubin Neonat Indirect Bili AST ALT Alkaline Phosphatase Creatine Kinase CK-MB (CK-2) Troponin I Total Protein Albumin TSH Free T4 Serum Alcohol POC Creatinine 1.9 H* 06/15/19 06/15/19 06/15/19 12:56 12:56 15:26 WBC RBC Hgb Hct MCV MCH MCHC RDW Plt Count Lymph % (Auto) Vernon % (Auto) Eos % (Auto) Baso % (Auto) Absolute Neuts (auto) Absolute Lymphs (auto) Absolute Monos (auto) Absolute Eos (auto) Absolute Basos (auto) Seg Neutrophils % D-Dimer 3.97 H Sodium 132.4 L Potassium 4.3 Chloride 90 L Carbon Dioxide 28 Anion Gap 14 BUN 23 H Creatinine 1.60 H Est GFR ( Amer) 52 L Est GFR (MDRD) Non-Af 43 L Glucose 117 H POC Glucose 133 H Hemoglobin A1c % Calcium 9.2 Total Bilirubin 1.6 H Direct Bilirubin 0.2 Neonat Total Bilirubin Not Reportable Neonat Direct Bilirubin Not Reportable Neonat Indirect Bili Not Reportable AST 256 H ALT 123 Alkaline Phosphatase 96 Creatine Kinase CK-MB (CK-2) Troponin I Total Protein 9.0 H Albumin 4.9 TSH Free T4 Serum Alcohol POC Creatinine 06/15/19 06/16/19 06/16/19 21:12 07:22 08:59 WBC 4.7 RBC 4.39 Hgb 13.7 Hct 40.4 MCV 92 MCH 31.2 MCHC 33.9 RDW 14.5 H Plt Count 160 Lymph % (Auto) 28.6 Vernon % (Auto) 12.2 Eos % (Auto) 5.7 Baso % (Auto) 0.5 Absolute Neuts (auto) 2.5 Absolute Lymphs (auto) 1.3 Absolute Monos (auto) 0.6 Absolute Eos (auto) 0.3 Absolute Basos (auto) 0.0 Seg Neutrophils % 53.0 D-Dimer Sodium Potassium Chloride Carbon Dioxide Anion Gap BUN Creatinine Est GFR ( Amer) Est GFR (MDRD) Non-Af Glucose POC Glucose 166 H 88 Hemoglobin A1c % Calcium Total Bilirubin Direct Bilirubin Neonat Total Bilirubin Neonat Direct Bilirubin Neonat Indirect Bili AST ALT Alkaline Phosphatase Creatine Kinase CK-MB (CK-2) Troponin I Total Protein Albumin TSH Free T4 Serum Alcohol POC Creatinine 06/16/19 06/16/19 06/16/19 08:59 08:59 08:59 WBC RBC Hgb Hct MCV MCH MCHC RDW Plt Count Lymph % (Auto) Vernon % (Auto) Eos % (Auto) Baso % (Auto) Absolute Neuts (auto) Absolute Lymphs (auto) Absolute Monos (auto) Absolute Eos (auto) Absolute Basos (auto) Seg Neutrophils % D-Dimer Sodium 133.8 L Potassium 3.7 Chloride 98 Carbon Dioxide 26 Anion Gap 10 BUN 31 H Creatinine 1.68 H Est GFR ( Amer) 50 L Est GFR (MDRD) Non-Af 41 L Glucose 151 H POC Glucose Hemoglobin A1c % Calcium 8.3 L Total Bilirubin 0.8 Direct Bilirubin 0.2 Neonat Total Bilirubin Not Reportable Neonat Direct Bilirubin Not Reportable Neonat Indirect Bili Not Reportable AST 194 H ALT 94 Alkaline Phosphatase 96 Creatine Kinase 174 H CK-MB (CK-2) 1.48 Troponin I 0.083 Total Protein 6.6 Albumin 3.4 L TSH 2.34 Free T4 0.91 Serum Alcohol < 10 POC Creatinine 06/16/19 06/16/19 06/16/19 11:40 15:09 16:45 WBC RBC Hgb Hct MCV MCH MCHC RDW Plt Count Lymph % (Auto) Vernon % (Auto) Eos % (Auto) Baso % (Auto) Absolute Neuts (auto) Absolute Lymphs (auto) Absolute Monos (auto) Absolute Eos (auto) Absolute Basos (auto) Seg Neutrophils % D-Dimer Sodium Potassium Chloride Carbon Dioxide Anion Gap BUN Creatinine Est GFR ( Amer) Est GFR (MDRD) Non-Af Glucose POC Glucose 133 H 130 H Hemoglobin A1c % Calcium Total Bilirubin Direct Bilirubin Neonat Total Bilirubin Neonat Direct Bilirubin Neonat Indirect Bili AST ALT Alkaline Phosphatase Creatine Kinase 124 CK-MB (CK-2) Troponin I Total Protein Albumin TSH Free T4 Serum Alcohol POC Creatinine 06/16/19 06/16/19 06/17/19 16:45 21:17 00:45 WBC RBC Hgb Hct MCV MCH MCHC RDW Plt Count Lymph % (Auto) Vernon % (Auto) Eos % (Auto) Baso % (Auto) Absolute Neuts (auto) Absolute Lymphs (auto) Absolute Monos (auto) Absolute Eos (auto) Absolute Basos (auto) Seg Neutrophils % D-Dimer Sodium Potassium Chloride Carbon Dioxide Anion Gap BUN Creatinine Est GFR ( Amer) Est GFR (MDRD) Non-Af Glucose POC Glucose 130 H Hemoglobin A1c % Calcium Total Bilirubin Direct Bilirubin Neonat Total Bilirubin Neonat Direct Bilirubin Neonat Indirect Bili AST ALT Alkaline Phosphatase Creatine Kinase 126 CK-MB (CK-2) 1.16 Troponin I 0.066 Total Protein Albumin TSH Free T4 Serum Alcohol POC Creatinine 06/17/19 06/17/19 06/17/19 00:45 07:26 08:20 WBC 4.8 RBC 4.55 Hgb 14.1 Hct 42.0 MCV 92 MCH 31.0 MCHC 33.6 RDW 14.4 H Plt Count 146 L Lymph % (Auto) 28.2 Vernon % (Auto) 8.6 Eos % (Auto) 13.9 H Baso % (Auto) 1.4 Absolute Neuts (auto) 2.3 Absolute Lymphs (auto) 1.4 Absolute Monos (auto) 0.4 Absolute Eos (auto) 0.7 H Absolute Basos (auto) 0.1 Seg Neutrophils % 47.9 D-Dimer Sodium Potassium Chloride Carbon Dioxide Anion Gap BUN Creatinine Est GFR ( Amer) Est GFR (MDRD) Non-Af Glucose POC Glucose 98 Hemoglobin A1c % Calcium Total Bilirubin Direct Bilirubin Neonat Total Bilirubin Neonat Direct Bilirubin Neonat Indirect Bili AST ALT Alkaline Phosphatase Creatine Kinase CK-MB (CK-2) 1.32 Troponin I 0.050 Total Protein Albumin TSH Free T4 Serum Alcohol POC Creatinine 06/17/19 06/17/19 06/17/19 08:20 11:17 15:49 WBC RBC Hgb Hct MCV MCH MCHC RDW Plt Count Lymph % (Auto) Vernon % (Auto) Eos % (Auto) Baso % (Auto) Absolute Neuts (auto) Absolute Lymphs (auto) Absolute Monos (auto) Absolute Eos (auto) Absolute Basos (auto) Seg Neutrophils % D-Dimer Sodium 133.9 L Potassium 3.6 Chloride 100 Carbon Dioxide 26 Anion Gap 8 BUN 20 Creatinine 0.97 Est GFR ( Amer) > 60 Est GFR (MDRD) Non-Af > 60 Glucose 123 H POC Glucose 137 H 94 Hemoglobin A1c % Calcium 9.0 Total Bilirubin 1.1 Direct Bilirubin 0.2 Neonat Total Bilirubin Not Reportable Neonat Direct Bilirubin Not Reportable Neonat Indirect Bili Not Reportable AST 173 H ALT 109 Alkaline Phosphatase 71 Creatine Kinase CK-MB (CK-2) Troponin I Total Protein 7.4 Albumin 3.9 TSH Free T4 Serum Alcohol POC Creatinine Abdomen/Pelvis CT 06/15/19 00:00 IMPRESSION: No CT findings of the abdomen or pelvis to explain weight loss. Chest X-Ray 06/15/19 00:00 IMPRESSION: NO ACUTE RADIOGRAPHIC FINDING IN THE CHEST. Lung Scan-VQ NM 06/15/19 00:00 IMPRESSION: NORMAL VENTILATION-PERFUSION LUNG SCAN. NEGATIVE FOR PULMONARY EMBOLI. EKG #1: ATRIAL FLUTTER WTH RVR [NIVCD] . NONSPECIFIC INTRAVENTRICULAR CONDUCTION DELAY [LVHPRE] . PROBABLE LVH WITH SECONDARY REPOL ABNRM EKG #2: ATRIAL FLUTTER, A-RATE 300 [LVHSR] . CONSIDER LEFT VENTRICULAR HYPERTROPHY EKG#3: ATRIAL FLUTTER, A-RATE 288 [LVHPRE] . PROBABLE LVH WITH SECONDARY REPOL ABNRM ECHOCARDIOGRAM: Shows normal left ventricular ejection ejection fraction. No significant valvular disease. IMPRESSION/RECOMMENDATION: 1. Atrial flutter at present controlled ventricular response. Onset seems to be last Thursday. Hence would not convert the patient to sinus rhythm. Hence we will discontinue the patient on amiodarone. We will start the patient on a beta-estephania, and increase the dose as tolerated.. I have discussed the pros and cons and bleeding complications risks and benefits of chronic anticoagulation. Coumadin versus the newer oral anticoagulation agents have been discussed with the patient patient's they agreed to be on Eliquis. I have explained to the patient that he needs to quit alcohol in view of the patient being on Eliquis. We will start the patient on Eliquis 5 mg p.o. twice daily. 2. Diabetes mellitus: [id number]: Continue current medication. 3. Hypertension: Blood pressure well controlled. 4. Renal insufficiency:? Chronic. This may be secondary to overdiuresis. We will hydrate the patient with normal saline slowly and recheck the patient's renal function. Would recommend stopping the patient's hydrochlorothiazide and continue the patient on only ARB. 5. CORRECTED ASAD VASCULAR 2 score is 3 hence chronic anticoagulation for stroke prophylaxis is strongly recommended Medications reviewed. Management plan discussed with attending physician on the case. Medications have been started by me. Medical decision making is of high complexity. 60 minutes spent on this patient with more than 50% of time spent in direct patient care.
--- NOTE | 2019-06-17 21:30 | PDOC PROGRESS REPORT ---
Subjective Progress Note for:: 06/17/19 Subjective:: Patient was seen today by Dr. Quintana, oncology, presently intravenous amiodarone was discontinued, started on anticoagulant Reason For Visit: A FLUTTER A FIB Physical Exam Vital Signs: Temp Pulse Resp BP Pulse Ox 97.3 F 74 16 116/56 L 100 06/17/19 19:33 06/17/19 19:33 06/17/19 19:33 06/17/19 19:33 06/17/19 19:33 Intake & Output 06/16/19 06/17/19 06/18/19 06:59 06:59 06:59 Intake Total 2139 1285 960 Output Total 360 Balance 1779 1285 960 Weight 82.1 kg 85.7 kg General appearance: PRESENT: no acute distress Eye exam: PRESENT: PERRLA Respiratory exam: PRESENT: clear to auscultation dasia Cardiovascular exam: PRESENT: +S1, +S2 GI/Abdominal exam: PRESENT: soft Neurological exam: PRESENT: alert Results Laboratory Results: 06/17/19 08:20 06/17/19 08:20 06/17/19 06/17/19 08:20 08:20 WBC 4.8 RBC 4.55 Hgb 14.1 Hct 42.0 MCV 92 MCH 31.0 MCHC 33.6 RDW 14.4 H Plt Count 146 L Seg Neutrophils % 47.9 Sodium 133.9 L Potassium 3.6 Chloride 100 Carbon Dioxide 26 Anion Gap 8 BUN 20 Creatinine 0.97 Est GFR ( Amer) > 60 Glucose 123 H Calcium 9.0 Total Bilirubin 1.1 AST 173 H Alkaline Phosphatase 71 Total Protein 7.4 Albumin 3.9 06/16/19 06/16/19 06/16/19 08:59 08:59 16:45 Creatine Kinase 174 H 124 CK-MB (CK-2) 1.48 Troponin I 0.083 06/16/19 06/17/19 06/17/19 16:45 00:45 00:45 Creatine Kinase 126 CK-MB (CK-2) 1.16 1.32 Troponin I 0.066 0.050 Impressions: Abdomen/Pelvis CT 06/15/19 00:00 IMPRESSION: No CT findings of the abdomen or pelvis to explain weight loss. Chest X-Ray 06/15/19 00:00 IMPRESSION: NO ACUTE RADIOGRAPHIC FINDING IN THE CHEST. Lung Scan-VQ VT 06/15/19 00:00 IMPRESSION: NORMAL VENTILATION-PERFUSION LUNG SCAN. NEGATIVE FOR PULMONARY EMBOLI. Assessment & Plan - Diagnosis (1) Atrial flutter Qualifiers: Atrial flutter type: unspecified Qualified Code(s): I48.92 - Unspecified atrial flutter Is this a current diagnosis for this admission?: Yes (2) Narrow complex tachycardia Is this a current diagnosis for this admission?: Yes (3) Alcoholic liver disease Is this a current diagnosis for this admission?: Yes (4) Dehydration Is this a current diagnosis for this admission?: Yes (5) Acute kidney injury Is this a current diagnosis for this admission?: Yes Plan: Improved with hydration (6) Hypotension Qualifiers: Hypotension type: unspecified hypotension type Qualified Code(s): I95.9 - Hypotension, unspecified Is this a current diagnosis for this admission?: Yes (7) Atrial fibrillation with controlled ventricular response Is this a current diagnosis for this admission?: Yes Plan: , She has multiple risk factors for ischemic heart disease including end-stage renal disease on maintenance hemodialysis, type 2 diabetes mellitus, tobacco use. She was referred to the emergency room from dialysis - Time Time Spent with patient: 35 or more minutes Level of Care: [facility]
[2019-06-18] MEDS: LORAZEPAM INJ 2 MG/1 ML VIAL IV SCH ×2 (05:55→17:58)
[2019-06-18] MEDS: NORMAL SALINE 1000 ML 1,000 ML IV PRN (05:55)
[2019-06-18] MEDS: INSULIN REG, HUMAN 100 UNIT/ML 3 ML VIAL (PYX) SUBCUT SCH ×4 (08:43→22:08)
[2019-06-18] MEDS: CLONIDINE HCL 0.1 MG TABLET PO SCH (10:09)
[2019-06-18] MEDS: APIXABAN 5 MG TABLET PO SCH ×2 (10:09→17:58)
[2019-06-18] MEDS: METOPROLOL TARTRATE 25 MG TABLET PO SCH ×2 (10:10→22:12)
--- NOTE | 2019-06-18 17:27 | PDOC PROGRESS REPORT ---
Subjective Progress Note for:: 06/18/19 Subjective:: Patient denied any chest pain or difficulty with breathing. No nausea, vomiting, abdominal pain, diarrhea, or abnormal bleeding. Reason For Visit: A FLUTTER A FIB Physical Exam Vital Signs: Temp Pulse Resp BP Pulse Ox 97.7 F 79 16 99/56 L 100 06/18/19 16:00 06/18/19 16:00 06/18/19 16:00 06/18/19 16:00 06/18/19 16:00 Intake & Output 06/17/19 06/18/19 06/19/19 06:59 06:59 05:59 Intake Total 2285 1960 800 Balance 2285 1960 800 Weight 85.7 kg 86.4 kg General appearance: PRESENT: no acute distress, well-developed, well-nourished Head exam: PRESENT: atraumatic, normocephalic Eye exam: PRESENT: conjunctiva pink. ABSENT: scleral icterus Ear exam: PRESENT: normal external ear exam Mouth exam: PRESENT: moist Respiratory exam: PRESENT: clear to auscultation dasia Cardiovascular exam: PRESENT: irregular rhythm. ABSENT: diastolic murmur, systolic murmur Vascular exam: ABSENT: pallor GI/Abdominal exam: PRESENT: normal bowel sounds, soft. ABSENT: distended, guarding, mass, organolmegaly, rebound, tenderness Extremities exam: ABSENT: pedal edema Musculoskeletal exam: PRESENT: normal inspection Neurological exam: PRESENT: alert, awake, oriented to person, oriented to place, oriented to time, oriented to situation, CN II-XII grossly intact. ABSENT: motor sensory deficit Psychiatric exam: PRESENT: appropriate affect, normal mood. ABSENT: homicidal ideation, suicidal ideation Skin exam: PRESENT: dry, warm Results Laboratory Results: 06/17/19 08:20 06/17/19 08:20 06/16/19 06/16/19 06/16/19 08:59 08:59 16:45 Creatine Kinase 174 H 124 CK-MB (CK-2) 1.48 Troponin I 0.083 06/16/19 06/17/19 06/17/19 16:45 00:45 00:45 Creatine Kinase 126 CK-MB (CK-2) 1.16 1.32 Troponin I 0.066 0.050 Impressions: Abdomen/Pelvis CT 06/15/19 00:00 IMPRESSION: No CT findings of the abdomen or pelvis to explain weight loss. Chest X-Ray 06/15/19 00:00 IMPRESSION: NO ACUTE RADIOGRAPHIC FINDING IN THE CHEST. Lung Scan-VQ NM 06/15/19 00:00 IMPRESSION: NORMAL VENTILATION-PERFUSION LUNG SCAN. NEGATIVE FOR PULMONARY EMBOLI. Assessment & Plan - Diagnosis (1) Atrial flutter Qualifiers: Atrial flutter type: unspecified Qualified Code(s): I48.92 - Unspecified atrial flutter Is this a current diagnosis for this admission?: Yes Plan: Continue current medication for rate control and anticoagulation treatment. (2) Impaired glucose metabolism Is this a current diagnosis for this admission?: Yes Plan: Maintain on dietary and calorie management in view of normal HgbA1c level at 5.8% on 06/15/2019. (3) Acute kidney injury Is this a current diagnosis for this admission?: Yes Plan: Improved with eGFR > 60 currently. - Time Time Spent with patient: 25-34 minutes Medications reviewed and adjusted accordingly: Yes Anticipated discharge: Home Within: Other - Inpatient Certification Based on my medical assessment, after consideration of the patient's comorbidities, presenting symptoms, or acuity I expect that the services needed warrant INPATIENT care.: Yes I certify that my determination is in accordance with my understanding of Medicare's requirements for reasonable and necessary INPATIENT services [42 CFR 412.3e].: Yes Medical Necessity: Significant Comorbidiites Make Outpatient Treatment Too Risky, Need Close Monitoring Due to Risk of Patient Decompensation, Need For IV Fluids, Need For Continuous Telemetry Monitoring, Risk of Complication if Not Cared For in Hospital, Risk of Diagnosis Which Will Require Inpatient Eval/Care/Monitoring Post Hospital Care: D/C Senior Electrical Project Manager Documentation - Plan Summary Plan Summary: Continue current medication management.
[2019-06-18] MEDS: THIAMINE HCL 100 MG in NORMAL SALINE 50 ML IV SCH (17:58)
--- NOTE | 2019-06-18 20:15 | Progress Note ---
Provider Note Provider Note: CARDIOLOGY PROGRESS NOTE by Dr. Damaris Quintana on 06/18/2019. SUBJECTIVE: The patient remains in atrial flutter but with the vent controlled ventricular response his blood pressures on the lower side will need adjustment of his antihypertensives. He denies any chest pain or discomfort. There is no left arm left shoulder or left next pain. There is no bleeding on Eliquis. There is no shortness of breath. There is no PND orthopnea. There is no TIA CVA symptoms. Physical EXAMINATION: The patient is well-built and well-nourished in no acute distress. Selected Entries 06/18/19 06/18/19 11:16 16:00 Temperature 97.8 F 97.7 F Temperature Oral Oral Source Pulse Rate 73 79 Respiratory 15 16 Rate Blood Pressure 91/53 L Blood Pressure 99/56 L [Left Upper Arm ] Blood Pressure 65 Mean Blood Pressure 70 Mean [Left Upper Arm] Blood Pressure Supine Position [Left Upper Arm] BP Location Left Arm BP Position Supine O2 Sat by Pulse 100 100 Oximetry Oxygen Delivery Room Air Method ( includes room air) Oxygen Delivery Room Air Method HEAD: Atraumatic, normocephalic. EYES: Pupils equal round and reactive to light, extraocular movements intact, sclera anicteric, conjunctiva are normal. ENT: TMs normal, nares patent, oropharynx clear without exudates. Moist mucous membranes. NECK: Normal range of motion, supple without lymphadenopathy or JVD. Carotids are equal there is no bruits. There is no thyromegaly. There is no accessory muscles of respiration in use. Trachea central LUNGS: Breath sounds clear to auscultation bilaterally and equal. No wheezes rales or rhonchi. On palpation there is no chest wall tenderness. HEART: S1-S2 is heard. S1 is of variable intensity. There is no S3 gallop. There is no S4 gallop. There is systolic murmur left sternal border and apex without radiation. There is no rub.. ABDOMEN: Soft, nontender, normoactive bowel sounds. There is no hepatosplenic megaly no guarding, no rebound. No masses appreciated. EXTREMITIES: Normal range of motion, no pitting or edema. No clubbing or cyanosis. Femorals are well felt. There is no femoral bruits. Leg pulses are well felt. There is no DVT or cellulitis. There is no calf tenderness NEUROLOGICAL: Cranial nerves II through XII grossly intact. Normal speech, normal gait. The patient is awake alert oriented x3 with no focal deficits. PSYCH: Normal mood, normal affect. The patient judgment and insight are intact SKIN: Warm, Dry, normal turgor, no rashes or lesions noted. There is no petechia or ecchymosis. Labs- All tests 24 hr 06/17/19 06/18/19 06/18/19 21:14 07:20 11:16 POC Glucose 162 H 109 88 06/18/19 15:09 POC Glucose 136 H Abdomen/Pelvis CT 06/15/19 00:00 IMPRESSION: No CT findings of the abdomen or pelvis to explain weight loss. Chest X-Ray 06/15/19 00:00 IMPRESSION: NO ACUTE RADIOGRAPHIC FINDING IN THE CHEST. Lung Scan-VQ NM 06/15/19 00:00 IMPRESSION: NORMAL VENTILATION-PERFUSION LUNG SCAN. NEGATIVE FOR PULMONARY EMBOLI. IMPRESSION/RECOMMENDATION: 1. Atrial flutter at present controlled ventricular response. Onset seems to be last Thursday. Hence would not convert the patient to sinus rhythm. Hence we will discontinue the patient on amiodarone. We will start the patient on a beta-estephania, and increase the dose as tolerated.. I have discussed the pros and cons and bleeding complications risks and benefits of chronic anticoagulation. Coumadin versus the newer oral anticoagulation agents have been discussed with the patient patient's they agreed to be on Eliquis. I have explained to the patient that he needs to quit alcohol in view of the patient being on Eliquis. We will start the patient on Eliquis 5 mg p.o. twice daily. 2. Diabetes mellitus: [id number]: Continue current medication. 3. Hypertension: Blood pressure well controlled. 4. Renal insufficiency:? Chronic. This may be secondary to overdiuresis. We will hydrate the patient with normal saline slowly and recheck the patient's renal function. Would recommend stopping the patient's hydrochlorothiazide and continue the patient on only ARB. 5. CORRECTED ASAD VASCULAR 2 score is 3 hence chronic anticoagulation for stroke prophylaxis is strongly recommended Medications reviewed. Medication adjusted. We will stop the patient's current ARB with hydrochlorothiazide and start the patient on on a plain with ARB, without any diuretic. Management plan and medical regimen discussed with the attending physician: Dr. Fernando. Medical decision making is of high complexity. 40 minutes spent on this patient with more than 50% time spent in direct patient care. Will follow
[2019-06-19 04:37] LABS: ABSOLUTE EOSINOPHILS # (AUTO) 0.9 10^3/uL (0.0-0.6); ABSOLUTE LYMPHOCYTES (AUTO) 1.1 10^3/uL (0.5-4.7); ABSOLUTE MONOCYTES (AUTO) 0.4 10^3/uL (0.1-1.4); ABSOLUTE NEUT (AUTO) 2.4 10^3/uL (1.7-8.2); BASOPHILS % (AUTO) 0.6 % (0-2); EOSINOPHILS % (AUTO) 18.8 % (0-6); HEMATOCRIT 35.9 % (37.9-51.0); HEMOGLOBIN 12.1 g/dL (13.5-17.0); LYMPHOCYTES % (AUTO) 23.2 % (13-45); MEAN CORPUSCULAR HGB CONC 33.6 g/dL (32.0-36.0); MEAN CORPUSCULAR VOLUME 92 fl (80-97); MONOCYTES % (AUTO) 7.7 % (3-13); PLATELET COUNT 132 10^3/uL (150-450); RED CELL DISTRIBUTION WIDTH 14.4 % (11.5-14.0); SEGMENTED NEUTROPHILS % (AUTO) 49.7 % (42-78); TOTAL CELLS COUNTED % (AUTO) 100 %; WHITE BLOOD COUNT 4.9 10^3/uL (4.0-10.5)
[2019-06-19 05:06] LABS: ALBUMIN 3.3 g/dL (3.5-5.0); ALKALINE PHOSPHATASE 73 U/L (38-126); ANION GAP 9 (5-19); ASPARTATE AMINO TRANSFERASE 67 U/L (17-59); BILIRUBIN,DIRECT 0.1 mg/dL (0.0-0.4); BILIRUBIN,TOTAL 0.4 mg/dL (0.2-1.3); BLOOD UREA NITROGEN 15 mg/dL (7-20); CALCIUM 9.1 mg/dL (8.4-10.2); CARBON DIOXIDE 24 mmol/L (22-30); CHLORIDE 104 mmol/L (98-107); GLUCOSE 118 mg/dL (75-110); POTASSIUM 3.9 mmol/L (3.6-5.0); TOTAL PROTEIN 6.4 g/dL (6.3-8.2)
[2019-06-19] MEDS: LORAZEPAM INJ 2 MG/1 ML VIAL IV SCH ×2 (06:08→17:17)
[2019-06-19] MEDS: INSULIN REG, HUMAN 100 UNIT/ML 3 ML VIAL (PYX) SUBCUT SCH ×4 (07:28→22:24)
[2019-06-19] MEDS: CLONIDINE HCL 0.1 MG TABLET PO SCH (09:43)
[2019-06-19] MEDS: LOSARTAN POTASSIUM 25 MG TABLET PO SCH (09:43)
[2019-06-19] MEDS: APIXABAN 5 MG TABLET PO SCH ×2 (09:43→17:17)
[2019-06-19] MEDS: METOPROLOL TARTRATE 25 MG TABLET PO SCH ×2 (09:43→21:25)
--- NOTE | 2019-06-19 10:12 | Progress Note ---
Provider Note Provider Note: CARDIOLOGY PROGRESS NOTE by Dr. Damaris Quintana on 06/19/2019. SUBJECTIVE: Patient remains in atrial flutter with controlled ventricular response. He denies any chest pain or discomfort. There is no shortness of breath. There is no PND orthopnea. There is no ventricular arrhythmia seen. There is no pauses or AV block seen. There is no bleeding on Eliquis. There is no TIA CVA symptoms. PHYSICAL EXAMINATION: The patient is well-built and well-nourished. In no acute distress. Selected Entries 06/19/19 07:22 Temperature 97.3 F Temperature Oral Source Pulse Rate 78 Respiratory 16 Rate Blood Pressure 115/54 L Blood Pressure 74 Mean BP Location Left Arm BP Position Supine Oxygen Delivery Room Air Method HEAD: Atraumatic, normocephalic. EYES: Pupils equal round and reactive to light, extraocular movements intact, sclera anicteric, conjunctiva are normal. ENT: TMs normal, nares patent, oropharynx clear without exudates. Moist mucous membranes. NECK: Normal range of motion, supple without lymphadenopathy or JVD. Carotids are equal there is no bruits. There is no thyromegaly. There is no accessory muscles of respiration in use. Trachea central LUNGS: Breath sounds clear to auscultation bilaterally and equal. No wheezes rales or rhonchi. On palpation there is no chest wall tenderness. HEART: S1-S2 is heard. S1 is of variable intensity. There is no S3 gallop. There is no S4 gallop. There is systolic murmur left sternal border and apex without radiation. There is no rub.. ABDOMEN: Soft, nontender, normoactive bowel sounds. There is no hepatosplenic megaly no guarding, no rebound. No masses appreciated. EXTREMITIES: Normal range of motion, no pitting or edema. No clubbing or cyanosis. Femorals are well felt. There is no femoral bruits. Leg pulses are well felt. There is no DVT or cellulitis. There is no calf tenderness NEUROLOGICAL: Cranial nerves II through XII grossly intact. Normal speech, normal gait. The patient is awake alert oriented x3 with no focal deficits. PSYCH: Normal mood, normal affect. The patient judgment and insight are intact SKIN: Warm, Dry, normal turgor, no rashes or lesions noted. There is no petechia or ecchymosis. Labs- All tests 24 hr 06/18/19 06/18/19 06/18/19 11:16 15:09 21:11 WBC RBC Hgb Hct MCV MCH MCHC RDW Plt Count Lymph % (Auto) [place] % (Auto) Eos % (Auto) Baso % (Auto) Absolute Neuts (auto) Absolute Lymphs (auto) Absolute Monos (auto) Absolute Eos (auto) Absolute Basos (auto) Seg Neutrophils % Sodium Potassium Chloride Carbon Dioxide Anion Gap BUN Creatinine Est GFR ( Amer) Est GFR (MDRD) Non-Af Glucose POC Glucose 88 136 H 102 Calcium Total Bilirubin Direct Bilirubin Neonat Total Bilirubin Neonat Direct Bilirubin Neonat Indirect Bili AST ALT Alkaline Phosphatase Total Protein Albumin 06/19/19 06/19/19 06/19/19 03:43 03:43 07:20 WBC 4.9 RBC 3.90 L Hgb 12.1 L Hct 35.9 L MCV 92 MCH 31.0 MCHC 33.6 RDW 14.4 H Plt Count 132 L Lymph % (Auto) 23.2 [place] % (Auto) 7.7 Eos % (Auto) 18.8 H Baso % (Auto) 0.6 Absolute Neuts (auto) 2.4 Absolute Lymphs (auto) 1.1 Absolute Monos (auto) 0.4 Absolute Eos (auto) 0.9 H Absolute Basos (auto) 0.0 Seg Neutrophils % 49.7 Sodium 137.0 Potassium 3.9 Chloride 104 Carbon Dioxide 24 Anion Gap 9 BUN 15 Creatinine 0.86 Est GFR ( Amer) > 60 Est GFR (MDRD) Non-Af > 60 Glucose 118 H POC Glucose 97 Calcium 9.1 Total Bilirubin 0.4 Direct Bilirubin 0.1 Neonat Total Bilirubin Not Reportable Neonat Direct Bilirubin Not Reportable Neonat Indirect Bili Not Reportable AST 67 H ALT 71 Alkaline Phosphatase 73 Total Protein 6.4 Albumin 3.3 L Abdomen/Pelvis CT 06/15/19 00:00 IMPRESSION: No CT findings of the abdomen or pelvis to explain weight loss. Chest X-Ray 06/15/19 00:00 IMPRESSION: NO ACUTE RADIOGRAPHIC FINDING IN THE CHEST. Lung Scan-VQ NM 06/15/19 00:00 IMPRESSION: NORMAL VENTILATION-PERFUSION LUNG SCAN. NEGATIVE FOR PULMONARY EMBOLI. IMPRESSION/RECOMMENDATION: 1. Atrial flutter at present controlled ventricular response. Continue patient on beta-estephania and Eliquis. The plan is to bring back the patient in 4 weeks of being on Eliquis, if he still remains in atrial flutter for possible elective cardioversion versus sending the patient for atrial flutter focus ablation. 2. Diabetes mellitus: [id number]: Continue current medication. 3. Hypertension: Blood pressure well controlled. 4. Renal insufficiency: This is probably secondary to dehydration, and the effect of her hydrochlorothiazide. The patient's GFR post stopping the hydrochlorothiazide and hydrating patient is greater than 60 and within normal limits. Hence renal insufficiency has resolved. 5. CORRECTED ASAD VASCULAR 2 score is 3 hence chronic anticoagulation for stroke prophylaxis is strongly recommended. The patient has been advised and cautioned against use of alcohol. The patient being on Eliquis. Medications reviewed. Medication adjusted. We will stop the patient's current ARB with hydrochlorothiazide and start the patient on on a plain with ARB, without any diuretic. Management plan and medical regimen discussed with the attending physician, Dr. Candelaria, covering Dr. Fernando. Medical decision making is of moderate complexity. 40 minutes spent on this patient with more than 50% time spent in direct patient care. Will sign off the case, and will follow the patient in the office.
--- NOTE | 2019-06-19 11:24 | XCELERA REPORT ---
[address] [address] Transthoracic Echocardiogram Report Name: YVONNE FU Age: 69 yrs Gender: Male : 1950 Patient Status: Inpatient Patient Location: [address] [place] [address] Study Date: 06/16/2019 01:38 PM Height: 73 in Weight: 180 lb BSA: 2.1 m2 Procedure: A two-dimensional transthoracic echocardiogram with color flow and Doppler was performed. Study Quality: Fair. Reason For Study: a-flutter /a-fib History: a-flutter /a-fib. Ordering Physician: WILLIAMS BENNETT Performed By: Tiffany May Interpretation Summary The left ventricle is normal in size. There is mild to moderate concentric left ventricular hypertrophy. LV EF is 60% Left ventricular systolic function is low normal. The left ventricular wall motion is normal. There is no thrombus. No ASD ,VSD ,or PFO seeen. The right atrium is normal. The left atrial size is normal. There is no evidence of mitral valve prolapse. There is no vegetation seen on the mitral valve. There is no mitral valve stenosis. There is a mild amount of mitral regurgitation There is no aortic valvular vegetation. There is no aortic valve stenosis There is no LVOT obstruction. No aortic regurgitation is present. There is no tricuspid stenosis. There is a trace to mild amount of tricuspid regurgitation There is mild pulmonary hypertension by echo RVSP is 34 to 39 mm of Hg , with RA mean of 5 to 10. There is no pulmonic valvular stenosis. There is no pulmonic valvular regurgitation. The aortic root is normal size. The inferior vena cava appeared normal and decreased > 50% with respiration (RAP 5-10 mmHg) There is no pericardial effusion. MMode/2D Measurements & Calculations RVDd: 2.9 cm LVIDd: 3.9 cm FS: 29.3 % Ao root diam: 2.8 cm IVSd: 1.4 cm LVIDs: 2.8 cm EDV(Teich): 66.3 ml Ao root area: 6.1 cm2 LVPWd: 1.3 cm ESV(Teich): 28.7 ml EF(Teich): 56.8 % Doppler Measurements & Calculations MV E max byron: MV dec slope: Ao V2 max: LV V1 max P.6 cm/sec 467.7 cm/sec2 172.9 cm/sec 7.3 mmHg MV A max byron: MV dec time: 0.17 sec Ao max PG: LV V1 max: 57.6 cm/sec 12.0 mmHg 135.0 cm/sec MV E/A: 1.4 PA V2 max: TR max byron: 88.6 cm/sec 269.5 cm/sec PA max P.1 mmHgTR max P.1 mmHg Left Ventricle The left ventricle is normal in size. There is mild to moderate concentric left ventricular hypertrophy. LV EF is 60%. Left ventricular systolic function is low normal. LV diastolic function could not be adequately assessed due to atrial fibrilation. The left ventricular wall motion is normal. There is no thrombus. No ASD ,VSD ,or PFO seeen. Right Ventricle The right ventricle is normal in size and function. Atria The right atrium is normal. The left atrial size is normal. Mitral Valve There is no evidence of mitral valve prolapse. There is no vegetation seen on the mitral valve. There is no mitral valve stenosis. There is a mild amount of mitral regurgitation. Aortic Valve There is no aortic valvular vegetation. There is no aortic valve stenosis. There is no LVOT obstruction. No aortic regurgitation is present. Tricuspid Valve There is no tricuspid stenosis. There is a trace to mild amount of tricuspid regurgitation. There is mild pulmonary hypertension by echo. RVSP is 34 to 39 mm of Hg , with RA mean of 5 to 10. Pulmonic Valve There is no pulmonic valvular stenosis. There is no pulmonic valvular regurgitation. Great Vessels The aortic root is normal size. The inferior vena cava appeared normal and decreased > 50% with respiration (RAP 5-10 mmHg). Effusions There is no pericardial effusion. : WILLIAMS BENNETT Lakshmi
--- NOTE | 2019-06-19 14:29 | PDOC PROGRESS REPORT ---
Subjective Progress Note for:: 06/19/19 Subjective:: Patient denied any chest pain or difficulty with breathing. No nausea, vomiting, abdominal pain, diarrhea, or abnormal bleeding. Ambulating on the floor. Reason For Visit: A FLUTTER A FIB Physical Exam Vital Signs: Temp Pulse Resp BP Pulse Ox 98.2 F 74 16 141/81 H 100 06/19/19 11:32 06/19/19 11:32 06/19/19 11:32 06/19/19 11:32 06/19/19 11:32 Intake & Output 06/18/19 06/19/19 06/20/19 07:59 06:59 06:59 Intake Total Balance Weight Physical Exam: General appearance: PRESENT: no acute distress, well-developed, well-nourished Head exam: PRESENT: atraumatic, normocephalic Eye exam: PRESENT: conjunctiva pink. ABSENT: pallor, scleral icterus Ear exam: PRESENT: normal external ear exam Mouth exam: PRESENT: moist Respiratory exam: PRESENT: clear to auscultation dasia Cardiovascular exam: PRESENT: irregular rhythm. ABSENT: diastolic murmur, systolic murmur GI/Abdominal exam: PRESENT: normal bowel sounds, soft. ABSENT: distended, guarding, mass, organomegaly, rebound, tenderness Extremities exam: ABSENT: pedal edema Musculoskeletal exam: PRESENT: normal inspection Neurological exam: PRESENT: alert, awake, oriented to person, oriented to place, oriented to time, oriented to situation, CN II-XII grossly intact. ABSENT: motor sensory deficit Psychiatric exam: PRESENT: appropriate affect, normal mood. ABSENT: homicidal ideation, suicidal ideation Skin exam: PRESENT: dry, warm Results Laboratory Results: 06/19/19 03:43 06/19/19 03:43 06/19/19 06/19/19 03:43 03:43 WBC 4.9 RBC 3.90 L Hgb 12.1 L Hct 35.9 L MCV 92 MCH 31.0 MCHC 33.6 RDW 14.4 H Plt Count 132 L Seg Neutrophils % 49.7 Sodium 137.0 Potassium 3.9 Chloride 104 Carbon Dioxide 24 Anion Gap 9 BUN 15 Creatinine 0.86 Est GFR ( Amer) > 60 Glucose 118 H Calcium 9.1 Total Bilirubin 0.4 AST 67 H Alkaline Phosphatase 73 Total Protein 6.4 Albumin 3.3 L 10/06/16/19 06/16/19 08:59 08:59 16:45 Creatine Kinase 174 H 124 CK-MB (CK-2) 1.48 Troponin I 0.083 06/16/19 06/17/19 06/17/19 16:45 00:45 00:45 Creatine Kinase 126 CK-MB (CK-2) 1.16 1.32 Troponin I 0.066 0.050 Impressions: Abdomen/Pelvis CT 06/15/19 00:00 IMPRESSION: No CT findings of the abdomen or pelvis to explain weight loss. Chest X-Ray 06/15/19 00:00 IMPRESSION: NO ACUTE RADIOGRAPHIC FINDING IN THE CHEST. Lung Scan-VQ NM 06/15/19 00:00 IMPRESSION: NORMAL VENTILATION-PERFUSION LUNG SCAN. NEGATIVE FOR PULMONARY EMBOLI. Assessment & Plan - Diagnosis (1) Atrial flutter Qualifiers: Atrial flutter type: unspecified Qualified Code(s): I48.92 - Unspecified atrial flutter Is this a current diagnosis for this admission?: Yes (2) Impaired glucose metabolism Is this a current diagnosis for this admission?: Yes (3) Acute kidney injury Is this a current diagnosis for this admission?: Yes - Time Time Spent with patient: 25-34 minutes Level of Care: IMCU Medications reviewed and adjusted accordingly: Yes Anticipated discharge: Home Within: Other - Inpatient Certification Based on my medical assessment, after consideration of the patient's comorbiditi es, presenting symptoms, or acuity I expect that the services needed warrant INPATIENT care.: Yes I certify that my determination is in accordance with my understanding of [facility]'s requirements for reasonable and necessary INPATIENT services [42 CFR 412.3e].: Yes Medical Necessity: Significant Comorbidiites Make Outpatient Treatment Too Risky, Need Close Monitoring Due to Risk of Patient Decompensation, Need For Continuous Telemetry Monitoring, Risk of Complication if Not Cared For in Hospital, Risk of Diagnosis Which Will Require Inpatient Eval/Care/Monitoring Post Hospital Care: D/C Admissions Nurse Documentation - Plan Summary Plan Summary: Continue current medication management.
[2019-06-19] MEDS: THIAMINE HCL 100 MG in NORMAL SALINE 50 ML IV SCH (17:17)
[2019-06-20] MEDS: LORAZEPAM INJ 2 MG/1 ML VIAL IV SCH (05:54)
[2019-06-20] MEDS: CLONIDINE HCL 0.1 MG TABLET PO SCH (09:45)
[2019-06-20] MEDS: METOPROLOL TARTRATE 25 MG TABLET PO SCH (09:45)
[2019-06-20] MEDS: INSULIN REG, HUMAN 100 UNIT/ML 3 ML VIAL (PYX) SUBCUT SCH ×3 (09:45→15:43)
[2019-06-20] MEDS: LOSARTAN POTASSIUM 25 MG TABLET PO SCH (09:45)
[2019-06-20] MEDS: APIXABAN 5 MG TABLET PO SCH ×2 (09:45→18:03)
--- NOTE | 2019-06-20 16:43 | RADIOLOGY REPORT (SQ) ---
EXAM DESCRIPTION: CT HEAD WITHOUT COMPLETED DATE/TIME: 06/20/2019 4:31 pm REASON FOR STUDY: Hypertension R63.4 ABNORMAL WEIGHT LOSS E11.9 TYPE 2 DIABETES MELLITUS WITHOUT C OMPLICATIONS F10.20 ALCOHOL DEPENDENCE, UNCOMPLICATED COMPARISON: None. TECHNIQUE: Axial images acquired through the brain without intravenous contrast. Images reviewed wit h bone, brain and subdural windows. Images stored on PACS. All CT scanners at this facility use dose modulation, iterative reconstruction, and/or weight based d osing when appropriate to reduce radiation dose to as low as reasonably achievable (ALARA). [facility]: Dose Right [facility]: CareDose [facility]: Dose Right [facility]: Teradose 4D [facility]: Yummly RADIATION DOSE: CT Rad equipment meets quality standard of care and radiation dose reduction techniq ues were employed. CTDIvol: 53.2 mGy. DLP: 1070 mGy-cm.. LIMITATIONS: None. FINDINGS: VENTRICLES: Normal size and contour. CEREBRUM: No hemorrhage. No midline shift. Age appropriate white matter with some scattered small ves tiny ischemic changes in the periventricular white matter. No evidence for acute large vessel infarcti on. CEREBELLUM: No masses. No hemorrhage. No alteration of density. No evidence for acute infarction. EXTRA-AXIAL SPACES: No fluid collections. ORBITS AND GLOBE: No intra- or extraconal masses. Normal contour of globe without masses. CALVARIUM: No fracture. PARANASAL SINUSES: No fluid. Scattered mucosal thickening. SOFT TISSUES: No mass or hematoma. OTHER: No other significant finding. IMPRESSION: No hemorrhage. No midline shift. Age appropriate white matter with some scattered small vessel ischemic changes in the periventricular white matter. No evidence for acute large vessel infar ction. EVIDENCE OF ACUTE STROKE: NO. TECHNICAL DOCUMENTATION: JOB ID: [id number] Quality ID # [id number]: Final reports with documentation of one or more dose reduction techniques (e.g., Au tomated exposure control, adjustment of the mA and/or kV according to patient size, use of iterative reconstruction technique) 2010 [employer]- All Rights Reserved Reading location - IP/workstation name: [email or web address]
[2019-06-20 16:47] VITALS: BP 152/96
--- NOTE | 2019-06-20 20:30 | PDOC DISCHARGE SUMMARY ---
Impression - Admit/DC Date/PCP Admission Date/Primary Care Provider: 06/15/19 20:33 WILLIAMS BENNETT MD Discharge Date: 06/20/19 - Discharge Diagnosis (1) Narrow complex tachycardia Is this a current diagnosis for this admission?: Yes (2) Alcoholic liver disease Is this a current diagnosis for this admission?: Yes (3) Dehydration Is this a current diagnosis for this admission?: Yes (4) Acute kidney injury Is this a current diagnosis for this admission?: Yes (5) Atrial flutter with rapid ventricular response Is this a current diagnosis for this admission?: Yes (6) Atrial fibrillation with rapid ventricular response Is this a current diagnosis for this admission?: Yes - Additional Information Resuscitation Status: Full Code Discharge Diet: Diabetic Discharge Activity: Activity As Tolerated, Balance Activity w/Rest Referrals: WILLIAMS BENNETT MD [Primary Care Provider] - 06/29/19 9:15 am Prescriptions: RX: Clonidine HCl [Catapres 0.1 mg Tablet] 0.1 mg PO Q12 #60 tablet RX: Apixaban [Eliquis 5 mg Tablet] 5 mg PO BID #60 tablet Home Medications: RX: Pioglitazone HCl 30 mg PO DAILY 11/04/16 RX: Pravastatin Sodium 80 mg PO DAILY 11/04/16 RX: Allopurinol [Zyloprim 100 mg Tablet] 100 mg PO DAILYP PRN 06/15/19 RX: Olmesartan/Hydrochlorothiazide [Olmesartan-Hctz 40-12.5 mg Tab] 1 each PO DAILY 06/15/19 RX: Apixaban [Eliquis 5 mg Tablet] 5 mg PO BID #60 tablet 06/20/19 RX: Clonidine HCl [Catapres 0.1 mg Tablet] 0.1 mg PO Q12 #60 tablet 06/20/19 RX: Metoprolol Tartrate [Lopressor 25 mg Tablet] 25 mg PO Q12 #60 tablet 06/20/19 History of Present Illiness History of Present Illness: YVONNE FU is a 69 year old male, Patient came to the office today with the for evaluation of malaise, abnormal posture. Patient's spouse stated that this morning patient did not look himself,he staggered,He was supposed to go to work this morning but the brought him to the office for evaluation. In the office he was found to have elevated pulse rate, he also was found to have lost weight, he has been losing weight progressively over time he was last seen in the office on June 01, 2019 at the time he had blood work done in the office, the SGOT was 59 SGPT was normal the pattern of liver enzyme abnormality is consistent with alcohol liver disease. Patient always tend to downplay his alcohol use but the always stated that he drinks alcohol regularly and heavily, the last time he was in the office he was referred to GI Dr. Morales, is scheduled for colonoscopy by mid June. He was admitted today for evaluation of unexplained tachycardia, unexplained weight loss, dehydration, shortness of breath. The blood work that was done today in the hospital demonstrated elevated SGOT much more than the SGOT that was done in the office on 9.The CT scan of the abdomen and pelvis with IV contrast was negative for any acute pathology Hospital Course Hospital Course: Patient was admitted for the management of narrow complex tachycardia associated with hemodynamic instability, he was treated with intravenous amiodarone. He also had a 2D echo that demonstrated preserved ejection fraction of left ventricle, he was seen by Dr. Quintana, cardiology he also had anticoagulant with Eliquis. The narrow complex tachycardia was atrial flutter alternating with atrial fibrillation, rate control was achieved ultimately with beta-estephania metoprolol. He also had elevated blood pressure that required clonidine. Clonidine was chosen because of history of alcohol use Physical Exam Vital Signs: Temp Pulse Resp BP Pulse Ox 98.2 F 78 17 152/96 H 100 06/20/19 18:04 06/20/19 18:04 06/20/19 18:04 06/20/19 18:04 06/20/19 18:04 Intake & Output 06/19/19 06/20/19 06/21/19 06:59 06:59 06:59 Intake Total 891 720 Balance 891 720 Weight 93.8 kg General appearance: PRESENT: no acute distress Eye exam: PRESENT: PERRLA Respiratory exam: PRESENT: clear to auscultation dasia Cardiovascular exam: PRESENT: +S1, +S2 GI/Abdominal exam: PRESENT: soft Neurological exam: PRESENT: alert, CN II-XII grossly intact Results Laboratory Results: WBC 4.9 10^3/uL (4.0-10.5) 06/19/19 03:43 RBC 3.90 10^6/uL (4.35-5.55) L 06/19/19 03:43 Hgb 12.1 g/dL (13.5-17.0) L 06/19/19 03:43 Hct 35.9 % (37.9-51.0) L 06/19/19 03:43 MCV 92 fl (80-97) 06/19/19 03:43 MCH 31.0 pg (27.0-33.4) 06/19/19 03:43 MCHC 33.6 g/dL (32.0-36.0) 06/19/19 03:43 RDW 14.4 % (11.5-14.0) H 06/19/19 03:43 Plt Count 132 10^3/uL (150-450) L 06/19/19 03:43 Lymph % (Auto) 23.2 % (13-45) 06/19/19 03:43 [place] % (Auto) 7.7 % (3-13) 06/19/19 03:43 Eos % (Auto) 18.8 % (0-6) H 06/19/19 03:43 Baso % (Auto) 0.6 % (0-2) 06/19/19 03:43 Absolute Neuts (auto) 2.4 10^3/uL (1.7-8.2) 06/19/19 03:43 Absolute Lymphs (auto) 1.1 10^3/uL (0.5-4.7) 06/19/19 03:43 Absolute Monos (auto) 0.4 10^3/uL (0.1-1.4) 06/19/19 03:43 Absolute Eos (auto) 0.9 10^3/uL (0.0-0.6) H 06/19/19 03:43 Absolute Basos (auto) 0.0 10^3/uL (0.0-0.2) 06/19/19 03:43 Seg Neutrophils % 49.7 % (42-78) 06/19/19 03:43 D-Dimer 3.97 ug/mL (0.00-0.50) H 06/15/19 12:56 Sodium 137.0 mmol/L (137-145) 06/19/19 03:43 Potassium 3.9 mmol/L (3.6-5.0) 06/19/19 03:43 Chloride 104 mmol/L (98-107) 06/19/19 03:43 Carbon Dioxide 24 mmol/L (22-30) 06/19/19 03:43 Anion Gap 9 (5-19) 06/19/19 03:43 BUN 15 mg/dL (7-20) 06/19/19 03:43 Creatinine 0.86 mg/dL (0.52-1.25) 06/19/19 03:43 Est GFR ( Amer) > 60 (>60) 06/19/19 03:43 Est GFR (MDRD) Non-Af > 60 (>60) 06/19/19 03:43 Glucose 118 mg/dL (75-110) H 06/19/19 03:43 POC Glucose 153 mg/dL (70-110) H 06/20/19 15:10 Hemoglobin A1c % 5.8 % (4.7-6.0) 06/15/19 12:56 Calcium 9.1 mg/dL (8.4-10.2) 06/19/19 03:43 Total Bilirubin 0.4 mg/dL (0.2-1.3) 06/19/19 03:43 Direct Bilirubin 0.1 mg/dL (0.0-0.4) 06/19/19 03:43 Neonat Total Bilirubin Not Reportable 06/19/19 03:43 Neonat Direct Bilirubin Not Reportable 06/19/19 03:43 Neonat Indirect Bili Not Reportable 06/19/19 03:43 AST 67 U/L (17-59) H 06/19/19 03:43 ALT 71 U/L (<50) 06/19/19 03:43 Alkaline Phosphatase 73 U/L (38-126) 06/19/19 03:43 Creatine Kinase 126 U/L (55-170) 06/17/19 00:45 CK-MB (CK-2) 1.32 ng/mL (<4.55) 06/17/19 00:45 Troponin I 0.050 ng/mL 06/17/19 00:45 Total Protein 6.4 g/dL (6.3-8.2) 06/19/19 03:43 Albumin 3.3 g/dL (3.5-5.0) L 06/19/19 03:43 TSH 2.34 uIU/mL (0.47-4.68) 06/16/19 08:59 Free T4 0.91 ng/dL (0.78-2.19) 06/16/19 08:59 Serum Alcohol < 10 mg/dL (NONE DETECTED) 06/16/19 08:59 POC Creatinine 1.9 mg/dL (0.5-1.5) H* 06/15/19 12:26 06/16/19 06/16/19 06/17/19 08:59 16:45 00:45 CK-MB (CK-2) 1.48 1.16 1.32 Troponin I 0.083 0.066 0.050 Impressions: Abdomen/Pelvis CT 06/15/19 00:00 IMPRESSION: No CT findings of the abdomen or pelvis to explain weight loss. Chest X-Ray 06/15/19 00:00 IMPRESSION: NO ACUTE RADIOGRAPHIC FINDING IN THE CHEST. Lung Scan-VQ NM 06/15/19 00:00 IMPRESSION: NORMAL VENTILATION-PERFUSION LUNG SCAN. NEGATIVE FOR PULMONARY EM BOLI. Head CT 06/20/19 00:00 IMPRESSION: No hemorrhage. No midline shift. Age appropriate white matter with some scattered small vessel ischemic changes in the periventricular white matter. No evidence for acute large vessel infarction. EVIDENCE OF ACUTE STROKE: NO. Stroke Is this a Stroke Patient?: No Acute Heart Failure - Is this a Heart Failure Patient?: No
== END 2019-06-20 18:25 | disposition home or self-care (01) | DRG 309 ==
LOC: 3N 11:06 → OBSVTOIN 20:33
PROVIDERS: ADMIT Internal Medicine; ATTEND Internal Medicine
DX: I48.92 Unspecified atrial flutter (principal); N17.9 Acute kidney failure, unspecified; K70.9 Alcoholic liver disease, unspecified; I95.9 Hypotension, unspecified; E11.9 Type 2 diabetes mellitus without complications; R63.4 Abnormal weight loss; E86.0 Dehydration; R06.02 Shortness of breath; I10 Essential (primary) hypertension; F10.20 Alcohol dependence, uncomplicated; Z79.01 Long term (current) use of anticoagulants; Z88.8 Allergy status to other drugs, medicaments and biological substances; I48.91 Unspecified atrial fibrillation
CPT/HCPCS: 36415; 70450; 71046; 74177; 78582; 80048; 80053; 80076; 80307; 82550; 82553; 82565; 82962; 83036; 84439; 84443; 84484; 85025; 85027; 85379; 93005; 93010; 93306; A9540; A9567; G0378; G0379; J0282; J1815; J2060; J3411; J7030; J7060; Q9969

== ENCOUNTER → 2019-06-15 | Emergency (ER) | payer BC, MEDICARE ==
[2019-06-15 10:42] VITALS: BP 97/70
--- NOTE | 2019-06-15 12:56 | EKG REPORT ---
SEVERITY:- ABNORMAL ECG - ATRIAL FLUTTER WITH RVR PROBABLE LEFT VENTRICULAR HYPERTROPHY REPOLARIZATION ABNORMALITY, PROB RATE RELATED BORDERLINE ST ELEVATION, ANTEROLATERAL LEADS BORDERLINE PROLONGED QT INTERVAL : Confirmed by: Louis Salter MD 15-Jun-2019 12:55:51
== END ==
LOC: ER 10:20
DX: Z53.21 Procedure and treatment not carried out due to patient leaving prior to being seen by health care provider (principal)
CPT/HCPCS: 93005; 93010